=== PATIENT | female | born 1950 | race Caucasian/White ===

== ENCOUNTER → 2016-05-06 | Outpatient (CLI) | payer BC, OTHER ==
[~2016-05-06] MED LIST: ABL/5 PO; BUTA-240; CALCTAB5 PO; CHOL100010 PO; CLON1TAB3 PO; FIBER PO; LEVO50TA PO; LISI-725 PO; MISCCAP80 PO; MULT-506 PO; VENL150C56 PO
== END | disposition home or self-care (01) ==
LOC: C.PAPS 11:54
PROVIDERS: ATTEND Obstetrics & Gynecology
DX: R87.610 Atypical squamous cells of undetermined significance on cytologic smear of cervix (ASC-US) (principal)

== ENCOUNTER → 2016-06-04 | Outpatient (CLI) | payer BC, OTHER | END | disposition home or self-care (01) | LOC: C.LABBC 09:42 | PROVIDERS: ATTEND Psychiatry & Neurology Psychiatry | DX: Z79.899 Other long term (current) drug therapy (principal) ==

== ENCOUNTER → 2016-06-25 | Outpatient (CLI) | payer BC, OTHER | END | disposition home or self-care (01) | LOC: C.LABBC 11:15 | PROVIDERS: ATTEND Internal Medicine Geriatric Medicine | DX: E03.9 Hypothyroidism, unspecified (principal) ==

== ENCOUNTER → 2016-06-27 | Outpatient (CLI) | payer BC, OTHER | END | disposition home or self-care (01) | LOC: C.PATHSPEC 16:56 | PROVIDERS: ATTEND Obstetrics & Gynecology | DX: R87.613 High grade squamous intraepithelial lesion on cytologic smear of cervix (HGSIL) (principal) ==

== ENCOUNTER → 2016-07-11 | Outpatient (CLI) | payer BC, OTHER ==
--- NOTE | 2016-07-11 09:42 | DIAGNOSTIC IMAGING REPORT ---
CHEST 2 VIEWS ROUTINE CLINICAL HISTORY: PRE OP, PT WENT TO LAB FIRST, CPL AFTER PLEASE COMPARISON STUDY: 11/14/2015 FINDINGS: Mild chronic pleural reactive change right base. Lungs otherwise appear clear. Diaphragms smooth. IMPRESSION: Chronic pleural reactive change right base. No acute process. Electronically signed by: Russell Gaytan M.D. 07/11/2016 9:40 AM Dictated Date/Time: 07/11/2016 9:34 AM
[2016-07-11 09:44] LABS: MEAN CELL VOLUME 87.3 fL (80-100); MEAN CORPUSCULAR HEMOGLOBIN 30.6 pg (25-34); MEAN PLATELET VOLUME 8.7 fL (7.4-10.4); PLATELET COUNT 348 K/uL (130-400); RED BLOOD COUNT 4.58 M/uL (4.2-5.4); WHITE BLOOD COUNT 6.16 K/uL (4.8-10.8)
[2016-07-11 11:11] LABS: ALT/SGPT 27 U/L (12-78); AST/SGOT 19 U/L (15-37); BLOOD UREA NITROGEN 8 mg/dl (7-18); BUN/CREATININE RATIO 10.4 (10-20); CALCIUM 10.6 mg/dl (8.5-10.1); CARBON DIOXIDE 31 mmol/L (21-32); CHLORIDE 102 mmol/L (98-107); CREATININE 0.81 mg/dl (0.60-1.20); GLUCOSE 92 mg/dl (70-99); POTASSIUM 4.1 mmol/L (3.5-5.1); SODIUM 140 mmol/L (136-145)
[2016-07-11 11:13] LABS: ALB/GLOB RATIO 1.3 (0.9-2); ALKALINE PHOSPHATASE 89 U/L (45-117)
== END | disposition home or self-care (01) ==
LOC: C.CPL 09:01
PROVIDERS: ATTEND Obstetrics & Gynecology Gynecologic Oncology
DX: Z01.810 Encounter for preprocedural cardiovascular examination (principal); Z01.811 Encounter for preprocedural respiratory examination; Z01.812 Encounter for preprocedural laboratory examination

== ENCOUNTER → 2016-08-19 | Outpatient (CLI) | payer BC, OTHER ==
--- NOTE | 2016-08-19 08:59 | DIAGNOSTIC IMAGING REPORT ---
CT SCAN OF THE CHEST WITHOUT IV CONTRAST CLINICAL HISTORY: Lung cancer status post right lower lobe resection. COMPARISON STUDY: Chest CT scans dated 01/30/2016 and 12/08/2013. TECHNIQUE: CT scan of the thorax was performed from the thoracic inlet to the upper abdomen. Images are reviewed in the axial, sagittal, and coronal planes. IV contrast was not administered as per the referring clinician. CT DOSE: 183.23 mGy.cm FINDINGS: Thyroid: The right lobe of the thyroid gland is diminutive versus surgically absent. Thoracic aorta: There is mild atherosclerotic calcification of the thoracic aorta, which is normal in caliber and demonstrates standard 3-vessel arch anatomy. Heart: The heart is top normal in size and there is a small pericardial effusion. Lungs and pleural spaces: There are postoperative from right lower lobectomy, with diminished volume in the right lung and mild compensatory hyperinflation of the left lung. Pleural fluid is seen at the right lung base and is likely on a postoperative basis. Mild emphysematous change is identified. The left lung is clear. No concerning pulmonary lesion is seen on today's examination. The trachea and central airways appear clear. Mediastinum: There is moderate rightward shift of mediastinum. There is no mediastinal lymphadenopathy. Vale: Not well assessed without IV contrast. Axillae: Surgical clips are noted in the right breast and the right axilla. There is no axillary lymphadenopathy. Upper abdomen: There is a small hiatal hernia. Partially visualized upper abdominal viscera is otherwise within normal limits. Skeletal structures: The skeletal structures are osteopenic. No lytic or blastic bony lesions are seen. There are healed bilateral rib fractures. The right rib fractures are new from 01/30/2016. IMPRESSION: 1. Emphysema and postoperative change from right lower lobe pulmonary resection as above. 2. There is no evidence of intrathoracic metastatic disease. 3. No airspace consolidation is identified typical for pneumonia. 4. Additional findings as above. Electronically signed by: Ramírez Lancaster M.D. 08/19/2016 8:57 AM Dictated Date/Time: 08/19/2016 8:40 AM
== END | disposition home or self-care (01) ==
LOC: C.CTS 08:23
PROVIDERS: ATTEND Surgery
DX: C34.31 Malignant neoplasm of lower lobe, right bronchus or lung (principal); J43.9 Emphysema, unspecified

== ENCOUNTER → 2016-09-05 | Outpatient (CLI) | payer BC, OTHER ==
[2016-09-05 16:52] LABS: BASO % 0.3 %; BASO ABS # 0.02 K/uL (0-0.2); COMPLETE YES; EOS % 6.8 %; HEMATOCRIT 38.8 % (37-47); IG% 0.4 %; LYMPH % 29.8 %; LYMPH ABS # 2.18 K/uL (1.2-3.4); MEAN CELL VOLUME 89.4 fL (80-100); MEAN CORPUSCULAR HEMOGLOBIN 30.2 pg (25-34); MEAN CORPUSCULAR HGB CONC 33.8 g/dl (32-36); MEAN PLATELET VOLUME 9.2 fL (7.4-10.4); MONO % 6.4 %; NEUT % 56.3 %; PLATELET COUNT 333 K/uL (130-400); RED BLOOD COUNT 4.34 M/uL (4.2-5.4); WHITE BLOOD COUNT 7.32 K/uL (4.8-10.8)
[2016-09-05 17:04] LABS: ALT/SGPT 25 U/L (12-78); AST/SGOT 20 U/L (15-37); BLOOD UREA NITROGEN 9 mg/dl (7-18); BUN/CREATININE RATIO 12.4 (10-20); CALCIUM 9.2 mg/dl (8.5-10.1); CARBON DIOXIDE 26 mmol/L (21-32); CHLORIDE 101 mmol/L (98-107); CREATININE 0.71 mg/dl (0.60-1.20); GLUCOSE 87 mg/dl (70-99); POTASSIUM 3.9 mmol/L (3.5-5.1); SODIUM 135 mmol/L (136-145)
[2016-09-05 17:15] LABS: ALB/GLOB RATIO 1.1 (0.9-2); ALKALINE PHOSPHATASE 94 U/L (45-117)
[2016-09-05 20:08] LABS: LYME DISEASE AB IGG NEG (NEG)
[2016-09-05 20:15] LABS: LYME DISEASE AB IGM EQUIVOCAL (NEG)
[2016-09-10 13:52] LABS: 18KDIGG BAND NONREACTIVE (NONREACTIVE); 23KDIGG BAND NONREACTIVE (NONREACTIVE); 23KDIGM BAND NONREACTIVE (NONREACTIVE); 28KDIGG BAND NONREACTIVE (NONREACTIVE); 30KDIGG BAND NONREACTIVE (NONREACTIVE); 39KDIGG BAND NONREACTIVE (NONREACTIVE); 39KDIGM BAND NONREACTIVE (NONREACTIVE); 41KDIGG BAND NONREACTIVE (NONREACTIVE); 41KDIGM BAND NONREACTIVE (NONREACTIVE); 45KDIGG BAND NONREACTIVE (NONREACTIVE); 58KDIGG BAND NONREACTIVE (NONREACTIVE); 66KDIGG BAND NONREACTIVE (NONREACTIVE); 93KDIGG BAND NONREACTIVE (NONREACTIVE)
== END ==
LOC: C.LABBC 15:04
PROVIDERS: ATTEND Physician Assistant
DX: L28.2 Other prurigo (principal)

== ENCOUNTER → 2017-02-10 | Outpatient (CLI) | payer BC, OTHER ==
--- NOTE | 2017-02-11 07:43 | MAMMOGRAPHY REPORT ---
BILATERAL DIGITAL SCREENING MAMMOGRAM TOMOSYNTHESIS WITH CAD: 02/10/2017 CLINICAL HISTORY: Asymptomatic. Personal history of breast cancer. Patient has no complaints. TECHNIQUE: Breast tomosynthesis in addition to standard 2D mammography was performed. Current study was also evaluated with a Computer Aided Detection (CAD) system. COMPARISON: Comparison is made to exams dated: 02/08/2016 mammogram, 02/03/2015 mammogram, 01/26/2014 mammogram, 01/25/2013 mammogram, 09/04/2012 mammogram, and 03/04/2012 aspiration - [facility]. BREAST COMPOSITION: There are scattered areas of fibroglandular density in both breasts. FINDINGS: There are circumscribed and lobulated fluctuating subcentimeter masses in the left breast, most likely representing fluctuating cysts. Expected architectural distortion and surgical clips in the right upper outer breast posteriorly, denoting the area of prior surgery. No new suspicious mass , architectural distortion or cluster of microcalcifications is seen bilaterally. IMPRESSION: ACR BI-RADS CATEGORY 2: BENIGN There is no mammographic evidence of malignancy. A 1 year screening mammogram is recommended. The pa tient will receive written notification of the results. Approximately 10% of breast cancers are not detected with mammography. A negative mammographic report should not delay biopsy if a clinically suggestive mass is present. Siria Dean M.D. ay/:02/10/2017 17:25:45 Washroom Operator: Loli Kaur M, [facility] letter sent: Normal 1/2 BI-RADS Code: ACR BI-RADS Category 2: Benign
== END | disposition home or self-care (01) ==
LOC: C.MAMM 09:59
PROVIDERS: ATTEND Internal Medicine Geriatric Medicine
DX: Z12.31 Encounter for screening mammogram for malignant neoplasm of breast (principal)

== ENCOUNTER → 2017-02-11 | Outpatient (CLI) | payer BC, OTHER ==
--- NOTE | 2017-02-11 14:42 | DIAGNOSTIC IMAGING REPORT ---
(CHEST) THORAX WITHOUT CT DOSE: 150.50 mGycm HISTORY: C34.31 Primary malignant neoplasm of right lower lobe of lung PT TECHNIQUE: Multiaxial CT images of the chest were performed without contrast. A dose lowering technique was utilized adhering to the principles of ALARA. COMPARISON: Chest CT 08/19/2016. FINDINGS: No pneumothorax. The patient is status post a right lower lobectomy. No pneumothorax. No pleural effusions. Mild emphysema. A few linear scarlike densities within the right lung base. Old, healed bilateral rib fractures. The visualized liver, spleen, and adrenal glands are unremarkable. No pleural effusions. Surgical clips within the right breast and right axilla. Stable subcentimeter nodular densities within the left breast. No mediastinal or hilar lymphadenopathy. Normal caliber thoracic aorta. The heart is normal in size. IMPRESSION: 1. Status post right lower lobectomy. 2. No evidence for recurrent or metastatic disease within the chest. 3. Mild emphysema. Electronically signed by: Garrett Urbano M.D. 02/11/2017 2:41 PM Dictated Date/Time: 02/11/2017 2:36 PM
== END | disposition home or self-care (01) ==
LOC: C.CTS 14:21
PROVIDERS: ATTEND Surgery
DX: C34.31 Malignant neoplasm of lower lobe, right bronchus or lung (principal)

== ENCOUNTER → 2017-08-12 | Outpatient (CLI) | payer BC, OTHER ==
[2017-08-12 13:14] LABS: BASO % 0.5 %; BASO ABS # 0.03 K/uL (0-0.2); EOS % 3.1 %; EOS ABS # 0.17 K/uL (0-0.5); HEMOGLOBIN 13.8 g/dL (12.0-16.0); IG# 0.01 K/uL (0.00-0.02); LYMPH % 40.7 %; LYMPH ABS # 2.26 K/uL (1.2-3.4); MEAN CELL VOLUME 89.5 fL (80-100); MEAN CORPUSCULAR HEMOGLOBIN 30.9 pg (25-34); MEAN CORPUSCULAR HGB CONC 34.5 g/dl (32-36); MEAN PLATELET VOLUME 9.1 fL (7.4-10.4); MONO ABS # 0.39 K/uL (0.11-0.59); NEUT % 48.5 %; NEUT ABS # 2.69 K/uL (1.4-6.5); PLATELET COUNT 378 K/uL (130-400); RED CELL DISTRIBUTION WIDTH SD 42.2 fL (36.4-46.3); WHITE BLOOD COUNT 5.55 K/uL (4.8-10.8)
[2017-08-12 13:35] LABS: ALBUMIN 4.4 gm/dl (3.4-5.0); ALT/SGPT 31 U/L (12-78); AST/SGOT 33 U/L (15-37); BLOOD UREA NITROGEN 12 mg/dl (7-18); CARBON DIOXIDE 28 mmol/L (21-32); CHOLESTEROL 215 mg/dl (0-200); CREATININE 0.75 mg/dl (0.60-1.20); GLUCOSE 97 mg/dl (70-99); POTASSIUM 3.8 mmol/L (3.5-5.1); SODIUM 136 mmol/L (136-145)
[2017-08-12 13:45] LABS: ALKALINE PHOSPHATASE 91 U/L (45-117); LDL CHOLESTEROL CALCULATED 110 mg/dl; TOTAL PROTEIN 7.6 gm/dl (6.4-8.2)
== END | disposition home or self-care (01) ==
LOC: C.LABBC 11:11
PROVIDERS: ATTEND Internal Medicine Geriatric Medicine
DX: M81.0 Age-related osteoporosis without current pathological fracture (principal); E03.9 Hypothyroidism, unspecified; I10 Essential (primary) hypertension; E55.9 Vitamin D deficiency, unspecified; F09 Unspecified mental disorder due to known physiological condition

== ENCOUNTER → 2017-08-14 | Outpatient (CLI) | payer BC, OTHER ==
--- NOTE | 2017-08-14 13:55 | DIAGNOSTIC IMAGING REPORT ---
(CHEST) THORAX WITHOUT CT DOSE: 176.20 mGy.cm CLINICAL HISTORY: 67 years-old Female with C34.31 Primary malignant neoplasm of right lower lobe of lung. Follow-up study in a patient with history of prior right lower lobectomy. TECHNIQUE: Multiaxial CT images of the chest were performed without contrast. A dose lowering technique was utilized adhering to the principles of ALARA. COMPARISON: Chest CT 02/11/2017 FINDINGS: No dominant thyroid nodule or pathologic adenopathy identified. The heart is normal in size without pericardial effusion. Thoracic aorta is normal without aneurysm. Trace amount of right pleural fluid is noted which appears unchanged. Postoperative changes from prior right lower lobectomy. There are ill-defined groundglass densities bowel the bilateral lungs measuring up to a proximally 6 mm. Additionally, subpleural reticulation about the lateral right lung base is unchanged suggesting posttreatment changes. Mild upper lobe predominant emphysema. There are no suspicious pulmonary nodules or masses identified. No acute process of the imaged upper abdomen. No suspicious lytic or blastic bony lesions. Multilevel intervertebral disc space narrowing, spondylitic spurring and facet arthrosis. Soft tissues are unremarkable. IMPRESSION: 1. Prior right lower lobectomy without evidence of recurrent or metastatic disease. 2. Ill-defined scattered subsegmental groundglass densities about the bilateral lungs suggest a subtle infectious or inflammatory pneumonitis. No lobar airspace consolidation or suspicious pulmonary nodules identified. 3. Mild emphysema. Electronically signed by: Travon Cardoso M.D. 08/14/2017 1:53 PM Dictated Date/Time: 08/14/2017 1:44 PM
== END | disposition home or self-care (01) ==
LOC: C.CTS 13:29
PROVIDERS: ATTEND Surgery
DX: C34.31 Malignant neoplasm of lower lobe, right bronchus or lung (principal); R91.8 Other nonspecific abnormal finding of lung field

== ENCOUNTER 2018-11-04 08:39 | Inpatient (IN) ==
--- NOTE | 2018-10-13 11:57 | PAT Medication Instructions ---
Medication Instructions Date of Service October 13, 2018 Home Medications Probiotic 1 tab PO QAM chfiyojvty-rlctibzqbfsxd-gecg 1 cap PO DAILY PRN cholecalciferol (vitamin D3) [Vitamin D3] 1,000 unit PO QAM clonazepam 0.5 mg PO QAM cyanocobalamin (vitamin B-12) Vitamin B-12 1,000 mcg PO QAM halobetasol propionate [Ultravate] 1 applic TOPICAL BID PRN multivitamin 1 tab PO QAM venlafaxine 150 mg PO BID lisinopril 20 mg PO QAM calcium carbonate-vitamin D3 600 mg calcium-200 unit capsule 2 cap PO DAILY fluticasone propionate 50 mcg/actuation nasal spray,suspension 2 spray INTRANASAL DAILY PRN ibuprofen 200 mg tablet 200 mg PO Q8H PRN ropinirole 0.25 mg tablet 0.75 mg PO QPM Herbal Laxative 1 tab PO DAILY cetirizine [Zyrtec] 10 mg PO UD PRN diphenhydramine HCl Benadryl 25 mg PO UD PRN levothyroxine 50 mcg PO QAM magnesium oxide 400 mg PO DAILY triamcinolone acetonide 1 applic TOPICAL UD PRN ASK your surgeon for instructions nwdaeroyjk-vljufaialolju-pvxt 1 cap PO DAILY PRN ibuprofen 200 mg tablet 200 mg PO Q8H PRN STOP taking 24 hours before surgery halobetasol propionate [Ultravate] 1 applic TOPICAL BID PRN ropinirole 0.25 mg tablet 0.75 mg PO QPM triamcinolone acetonide 1 applic TOPICAL UD PRN DO NOT take the morning of surgery Probiotic 1 tab PO QAM cholecalciferol (vitamin D3) [Vitamin D3] 1,000 unit PO QAM cyanocobalamin (vitamin B-12) Vitamin B-12 1,000 mcg PO QAM multivitamin 1 tab PO QAM lisinopril 20 mg PO QAM calcium carbonate-vitamin D3 600 mg calcium-200 unit capsule 2 cap PO DAILY Herbal Laxative 1 tab PO DAILY cetirizine [Zyrtec] 10 mg PO UD PRN diphenhydramine HCl Benadryl 25 mg PO UD PRN magnesium oxide 400 mg PO DAILY Take morning of surgery With a small sip of water, OTHERWISE NOTHING TO EAT OR DRINK AFTER MIDNIGHT: clonazepam 0.5 mg PO QAM venlafaxine 150 mg PO BID fluticasone propionate 50 mcg/actuation nasal spray,suspension 2 spray INTRANASAL DAILY PRN (if needed) levothyroxine 50 mcg PO QAM Other Notes If you have any questions please call us at [phone] or [phone] or [phone] or [phone]
--- NOTE | 2018-10-14 09:49 | Anesthesiology Consultation ---
Date of Service October 14, 2018 Assessment & Plan (1) Encounter for pre-operative examination: Chart Review Chart Review: Acceptable Risk for Surgery and Patient seen in Pre Admission Testing Teaching & Discussion Pre-Anesthesia Teaching/Discussion Notes: Instructed NPO after midnight before surgery,except medications with 15 cc of water. Medication instructions provided according to the PAT guidelines. History Surgery Operation Date: 11/04/18 11:50 Proposed Procedures p Laparoscopic Right Hemicolectomy - Dillan Lancaster, , FACS Height/Weight Height: 5 ft 5 in Weight: 48.8 kg Allergies Allergy/AdvReac Type Severity Reaction Status Date / Time propranolol AdvReac Unknown fatigue, Verified 10/13/18 11:54 weakness Medications Home Medications Medication Instructions Recorded Confirmed Last Taken Probiotic 1 tab PO QAM 04/27/18 10/07/18 09/11/18 qbbpxzssjv-vkkyivefrmnpw-eyqz 1 cap PO DAILY PRN 04/27/18 10/07/18 2 Weeks Ago ~04/27/18 cholecalciferol (vitamin D3) 1,000 unit PO QAM 04/27/18 10/07/18 09/11/18 [Vitamin D3] cyanocobalamin (vitamin B-12) 1,000 mcg PO QAM 04/27/18 10/07/18 10/07/18 [Vitamin B-12] halobetasol propionate [Ultravate] 1 applic TOPICAL BID PRN 04/27/18 10/07/18 2 Weeks Ago ~04/27/18 multivitamin 1 tab PO QAM 04/27/18 10/07/18 09/11/18 venlafaxine 150 mg PO BID 04/27/18 10/07/18 10/07/18 lisinopril 20 mg PO QAM 09/11/18 10/07/18 10/07/18 calcium carbonate-vitamin D3 600 2 cap PO DAILY cap 09/15/18 10/07/18 Unknown mg calcium-200 unit capsule fluticasone propionate 50 2 spray INTRANASAL DAILY PRN gm 09/15/18 10/07/18 Unknown mcg/actuation nasal spray,suspension ibuprofen 200 mg tablet 200 mg PO Q8H PRN tab 09/15/18 10/07/18 Unknown ropinirole 0.25 mg tablet 0.75 mg PO QPM tab 09/15/18 10/07/18 10/06/18 Herbal Laxative 1 tab PO DAILY 10/07/18 10/07/18 Unknown cetirizine [Zyrtec] 10 mg PO UD PRN 10/07/18 10/07/18 Unknown diphenhydramine HCl [Benadryl] 25 mg PO UD PRN 10/07/18 10/07/18 Unknown levothyroxine 50 mcg PO QAM 10/07/18 10/07/18 10/07/18 magnesium oxide 400 mg PO DAILY 10/07/18 10/07/18 Unknown triamcinolone acetonide 1 applic TOPICAL UD PRN 10/07/18 10/07/18 Unknown clonazepam 1 mg tablet 0.5 mg PO QAM #30 tab 10/13/18 Unknown Past Medical History Medical History Acid reflux diet controlled Anxiety Balance problem chronic/improved; nonspecific gait disorder (follows with neuro) s/p unremarkable EMG Cataract b/l Cecal volvulus Chronic constipation Degenerative disc disease Depression History of diverticulitis 7 years ago History of lung cancer s/p right lower lobectomy History of right breast cancer 1997 s/p radiation/ right breast lumpectomy with LND Hypertension Hypothyroidism Migraine Osteoarthritis Restless leg syndrome Spinal stenosis Transient ischemic attack (TIA) 2014 Exercise / Class Metabolic Activity II 4-5 Yardwork/Stairs/Walk up hill Past Family History Family History Unknown Cancer Mother Breast cancer Cancer Brother Suicide Other Family history non-contributory No family history of adverse response to anesthesia Past Surgical History Surgical History History of colonoscopy History of colposcopy with cervical biopsy History of dilatation and curettage History of left breast biopsy History of lobectomy of lung right lower lobe d/t cancer History of lumpectomy of right breast + LND History of right breast biopsy "malignant" History of tonsillectomy and adenoidectomy History of total abdominal hysterectomy and bilateral salpingo-oophorectomy History of wisdom tooth extraction Past Anesthesia History No Hx of Anesthesia Complications and No Family Hx of Anesthesia Complications History of PONV No Hx of PONV and No Hx of Motion Sickness Social History Smoking Status: Former smoker tobacco type: cigarettes Do You Dip or Chew Tobacco: No Smoking End Date: QUIT 1997; HX <1PPD Hx Alcohol Use: Yes Alcohol type: beer and wine alcohol intake frequency: 0-2 drinks per day (2 drinks/day (per records, hx alcoholism)) Hx Substance Use: No substance use type: does not use Review of Systems Patient denies chest pain, shortness of breath, dyspnea on exertion, cough, wheezing, palpitations. Physical Exam Vital Signs VITALS BP 148/83 P 98 TEMP 98.1 SP02 97%RA RESP 20 PHYSICAL Full neck and c-spine range of motion. Full TMJ range of motion. TMD 3 finger breaths Mallampati Score 2 Dentition: right lower side tooth missing. upper front caps, large upper front teeth Lungs: clear throughout to auscultation Cardiac: regular rate and rhythm, no murmurs noted Spine: normal Carotid arteries: negative bruit Extremities: no edema Testing Laboratory Results Blood Type O Positive 10/14/18 10:04 Antibody Screen NEGATIVE 10/14/18 10:04 09/11/18 WBC 5.34 H/H 12.2/36.0 PLATELETS 287 SODIUM 141 POTASSIUM 4.4 CHLORIDE 106 CO2 31 BUN 9 CREATININE 0.75 GLUCOSE 78 Electrocardiogram Date: 10/14/18 Findings: + NSR @ (69) Chest X-Ray Date: 09/11/18 Findings: + NAD Stress Test Date: 05/29/15 Type: DSE Negative DSE for myocardial ischemia at 90% MPHR. No induced chest pain. EF 60%. No significant valvular disease.
[2018-10-14 12:06] LABS: Alanine Aminotransferase 26 U/L (12-78); Albumin Level 4.3 gm/dl (3.4-5.0); Alkaline Phosphatase 88 U/L (45-117); Aspartate Aminotransferase 23 U/L (15-37); Bilirubin Direct < 0.1 mg/dl (0-0.2); Bilirubin,Total 0.4 mg/dl (0.2-1); Total Protein 7.3 gm/dl (6.4-8.2)
[~2018-11-04 08:39] MED LIST changes: -ABL/5 PO; -BUTA-240; -CALCTAB5 PO; -CHOL100010 PO; -CLON1TAB3 PO; -FIBER PO; -LEVO50TA PO; -LISI-725 PO; +LR 15ML/HR IV SCH; -MISCCAP80 PO; -MULT-506 PO; -VENL150C56 PO; +cefOXitin 2,000 MG in DEXTROSE 5% 50 ML IV SCH
--- NOTE | 2018-11-04 10:20 | History & Physical Bridge Note ---
Date of Service November 04, 2018 History & Physical Bridge Note I have examined the patient, reviewed the History & Physical and in the interval since the performance of the History & Physical I have noted the following changes of clinical significance: no changes noted
[2018-11-04] MEDS ORDERED: ATROPINE SULFATE 0.1 MG/ML 10ML SYR IV PRN (10:40)
[2018-11-04] MEDS ORDERED: fentaNYL citrate 100 MCG/2 ML VIAL IV PRN (10:40)
[2018-11-04] MEDS ORDERED: ePHEDrine sulfate 50 MG/ML AMP IV PRN (10:40)
[2018-11-04] MEDS ORDERED: HYDROmorphone INJ 1 MG/ML SYRINGE IV PRN (10:40)
[2018-11-04] MEDS ORDERED: ONDANSETRON INJ 2 MG/ML 2 ML VIAL IV PRN (10:40)
[2018-11-04] MEDS ORDERED: fentaNYL citrate 100 MCG/2 ML VIAL ONE ×3 (10:42→12:52)
[2018-11-04] MEDS ORDERED: MIDAZOLAM HCL 1 MG/ML 2ML VIAL ONE (10:42)
[2018-11-04] MEDS ORDERED: BUPIVACAINE LIPOSOME 1.3% 266 MG/20 ML VIAL ONE (10:44)
[2018-11-04] MEDS ORDERED: BUPIVACAINE 0.5 % 5 MG/1 ML MPF 30ML VIAL ONE (10:44)
[2018-11-04] MEDS ORDERED: ROCURONIUM BROMIDE 10 MG/ML 5 ML VIAL ONE (12:43)
[2018-11-04] MEDS ORDERED: PROPOFOL IV EMULSION 10 MG/ML 20 ML VIAL IV ONE (12:43)
[2018-11-04] MEDS ORDERED: LIDOCAINE HCL 2% 2 ML VIAL/AMP(20MG/ML) INFIL ONE (12:43)
[2018-11-04] MEDS ORDERED: GLYCOPYRROLATE 0.2 MG/ML VIAL ONE ×2 (12:53→12:58)
[2018-11-04] MEDS ORDERED: ONDANSETRON INJ 2 MG/ML 2 ML VIAL ONE ×2 (12:53)
[2018-11-04] MEDS ORDERED: LABETALOL HCL IV 5 MG/ML 20ML IV ONE (12:53)
[2018-11-04] MEDS ORDERED: DEXAMETHASONE SOD INJ 4 MG/ML VIAL ONE (12:53)
[2018-11-04] MEDS ORDERED: NEOSTIGMINE METHYLSULFATE 5 MG/5 ML SYR ONE (12:58)
--- NOTE | 2018-11-04 13:32 | Operative Report ---
Post Operative Report Pre & Post Diagnosis Operation Date: 11/04/18 10:00 Pre-Op Diagnosis: History of Cecal Volvulus Post-Op Diagnosis: History of Cecal Volvulus Procedure Operation Date: 11/04/18 10:00 Actual Procedures p Right Laparoscopic extended right hemicolectomy(Right) - Dillan Lancaster DO, FACS Surgeon Dillan Lancaster DO, FACS Histology Specialist Jesus Eckert Estimated Blood Loss 20 Findings Consistent with Post-Op Diagnosis Long, redundant colon. Extended right hemicolectomy performed. [id number]-oi-[id number] functional end-to-end ileocolic anastomosis performed using pierson loaded Endo TAWANA staplers, reinforced with Lembert's. Exparel injected at conclusion of case. Specimens Right: Anesthesia Type General Complications none Disposition Accompanied Patient To Recovery: No Disposition: Recovery Room Indications 68-year-old female with a single episode of cecal volvulus in the past that had resolved spontaneously. Plan for laparoscopic assisted right hemicolectomy. The risks of the procedure were discussed, all questions were answered, and the patient agreed to proceed with surgery as planned. Description of Procedure The patient was properly identified, consented, and taken to the operating room where she was placed in the supine position. General endotracheal anesthesia was induced. SCDs and a safety belt were placed. Preoperative antibiotics were administered. A Das catheter was placed. The patient's abdomen was prepped and draped in the standard sterile fashion. Surgical timeout was performed and all parties were in agreement that this was the correct patient and procedure to be performed and we continued as planned. A vertical midline infraumbilical incision was made with electrocautery and deepened down to the fascia with blunt dissection. The base of the umbilicus was grasped with a Romulo. The Romulo was elevated towards the ceiling and the fascia was incised with a knife. Stay sutures were placed on either side of the midline. The Mary trocar entry into the peritoneum was confirmed. The Mary trocar was then placed and the abdomen insufflated with carbon dioxide which the patient tolerated without incident. The laparoscope was inserted and the abdomen inspected. No damage from initial trocar placement was noted. No significant adhesions or other abnormalities were noted. Next, 5 mm ports were then placed in the midline just above the pubic symphysis with care not to damage the bladder and in the left lower quadrant with care not to damage the epigastric vessels. The patient was placed in Trendelenburg position and then rotated towards the left. The small bowel was swept out of the way. The right colon was redundant and poorly tethered to the abdominal wall. The cecum was grasped and elevated towards the anterior abdominal wall exposing the ileocolic vascular pedicle. The peritoneum just underneath this was incised with electrocautery. Blunt dissection was then used to isolate the vessels along with the use of the harmonic scalpel. The vessels were circumferentially dissected. A pierson loaded 30 mm endoscopic stapler was then used to divide the ileocolic vein and artery at their base. Hemostasis appeared excellent. We then continued the dissection from a medial to lateral approach dissecting the retroperitoneal structures posteriorly away from the colonic mesentery. Care was taken not to damage the pancreas or duodenum. We continued this dissection until we entered the lesser sac and continued laterally until the colon was nearly free of all adhesions except for the white line of Toldt. We then began dissection of the greater omentum off of the transverse colon mesentery. This was performed with blunt dissection and harmonic scalpel. The lesser sac was then entered. Once the medial to lateral dissection was completed, we then performed a lateral dissection using electrocautery and Harmonic scalp to take down the white line of Toldt along the right colon. Once this was completed, it appeared that the right colon and distal ileum would reach easily to the abdomen, we decided to exteriorize the colon. Laparoscopy was ceased and a midline incision was made around the umbilicus for a length of approximately 7 cm. The wound protector was placed within the wound after the fascia was opened and the colon was exteriorized. The colon reached e asily as did the small bowel. A window was created in the mesentery and the transverse colon was divided with a pierson loaded 60 mm stapler proximal to the left branch of the middle colic artery and vein. The distal ileum was divided in a similar manner approximately 20 cm from the ileocolic valve. We then completed the resection of the mesentery using the harmonic scalpel. What appeared to be the right branch of the middle colic was suture-ligated with 3-0 silk. A suxy-di-xqow functional end-to-end ileocolic anastomosis was created. The antimesenteric border the staple line on both the small bowel and colon was excised using curved Grayson scissors. A 60 mm pierson loaded stapler was then fired sequentially to create the anastomosis. The common enterotomy and staple lines were excised using a pierson loaded 60 mm Endo TAWANA stapler. The anastomosis was palpable and widely patent. The staple line was then reinforced circumferentially with 3-0 silk GI Lembert sutures. The mesenteric defect was then closed with 2-0 Vicryl suture. The anastomosis was inspected. The bowel appeared viable and the anastomosis was widely patent. There was no evidence of a leak. Hemostasis was excellent. The anastomosis was then allowed to drop back into the abdomen. The abdomen was then irrigated with warm saline. The fascia was then injected with exparel. The periumbilical wound protector was removed and the fascia was closed with a #1 PDS. The wound was irrigated and the incision was then closed with lela. The remaining port sites were closed with lela. Sterile dressings were place d. The patient was extubated in the operating room and taken to the PACU where she recovered without apparent incident. All sponge, instrument, and needle counts were correct. The patient tolerated the procedure well. The colon specimen was sent to Pathology. The physician's bioinformatics assistant was present and scrubbed the entire the case. He was critical in positioning the patient, prepping and draping, retraction and exposure, driving the laparoscope, resection of the bowel and creation of the anastomosis, closure the incisions, and placement of the dressings. I attest to the content of the Intraoperative Record and any orders documented therein. Any exceptions are noted below.
[2018-11-04] MEDS ORDERED: HydrALAZINE HCL 20 MG/ML VIAL ONE (14:12)
[2018-11-04] MEDS ORDERED: HydrALAZINE HCL 20 MG/ML VIAL IV STA (14:17)
--- NOTE | 2018-11-04 14:24 | Anesthesiology Progress Note ---
Date of Service November 04, 2018 Anesthesia Post Procedure Vital Signs Vital Signs: Temp Pulse Pulse Resp BP Pulse Ox 11/04/18 14:20 97.9 F 71 14 169/68 H 97 11/04/18 14:10 69 14 180/75 H 97 11/04/18 14:00 68 17 185/84 H 98 11/04/18 13:50 66 21 172/86 H 100 11/04/18 13:40 65 17 161/77 H 100 11/04/18 13:30 98.6 F 66 17 158/74 H 95 11/04/18 09:10 97.9 F 72 18 142/71 H 100 Pain Intensity Abdomen: Pain Intensity: 5 Transfer of Care Handoff Completed per policy Notes Mental Status: alert / awake / arousable and participated in evaluation Patient Amnestic to Procedure: Yes Nausea / Vomiting: adequately controlled Pain: adequately controlled Airway Patency, RR, SpO2: stable & adequate BP & HR: stable & adequate Hydration State: stable & adequate Anesthetic Complications: no major complications apparent and Pt Satisfied with anesthetic care
[2018-11-04] MEDS ORDERED: MoRPHine SULFATE 4 MG/ML 1 ML CARP\\VIAL IV PRN (14:57)
[2018-11-04] MEDS: LACTATED RINGER'S 1,000 ML IV SCH ×2 (15:55→23:02)
[2018-11-04] MEDS: MoRPHine SULFATE 2 MG/ML CARP IV PRN (16:30)
[2018-11-04] MEDS: cefOXitin 2,000 MG in DEXTROSE 5% 50 ML IV SCH ×2 (16:37→23:02)
[2018-11-04] MEDS: VENLAFAXINE HCL XR 150 MG CAPXR PO SCH (20:27)
[2018-11-04] MEDS: ROPINIROLE HCL 0.25 MG TABLET PO SCH (20:27)
[2018-11-04] MEDS: ACETAMINOPHEN 1,000 MG/100 ML VIAL IV PRN (20:31)
[2018-11-05] MEDS: MoRPHine SULFATE 2 MG/ML CARP IV PRN ×2 (03:28→07:30)
[2018-11-05] MEDS: cefOXitin 2,000 MG in DEXTROSE 5% 50 ML IV SCH ×2 (04:17→10:07)
[2018-11-05] MEDS: LACTATED RINGER'S 1,000 ML IV SCH ×2 (06:05→16:55)
[2018-11-05] MEDS: LEVOTHYROXINE SODIUM 50 MCG TABLET PO SCH (06:05)
[2018-11-05 06:14] LABS: Basophils # (auto) 0.02 K/uL (0-0.2); Basophils % (auto) 0.2 %; Eosinophils # (auto) 0.03 K/uL (0-0.5); Eosinophils % (auto) 0.3 %; Hemoglobin 12.6 g/dL (12.0-16.0); Immature Granulocytes # (auto) 0.01 K/uL (0.00-0.02); Immature Granulocytes % (auto) 0.1 %; Lymphocytes # (auto) 0.99 K/uL (1.2-3.4); Lymphocytes % (auto) 10.8 %; Mean Corpuscular Hgb Conc 34.1 g/dL (32-36); Mean Corpuscular Volume 89.6 fL (80-100); Mean Platelet Volume 8.5 fL (7.4-10.4); Monocytes # (auto) 0.77 K/uL (0.11-0.59); Monocytes % (auto) 8.4 %; Neutrophils # (auto) 7.33 K/uL (1.4-6.5); Neutrophils % (auto) 80.2 %; Platelet Count 297 K/uL (130-400); RDW Coefficient of Variation 12.8 % (11.5-14.5); RDW Standard Deviation 41.6 fL (36.4-46.3); Red Blood Count 4.13 M/uL (4.2-5.4); White Blood Count 9.15 K/uL (4.8-10.8)
[2018-11-05 07:01] LABS: BUN Creatinine Ratio 7.2 (10-20); Calcium 8.4 mg/dl (8.5-10.1); Creatinine Clr Calc Pharmacy 46.8 ml/min; Est GFR (African American) 76.1; Est GFR (Non-African American) 65.7; Potassium 4.2 mmol/L (3.5-5.1)
[2018-11-05] MEDS: ENOXAPARIN INJ 40 MG/0.4 ML SYR SQ SCH (08:00)
[2018-11-05] MEDS: VENLAFAXINE HCL XR 150 MG CAPXR PO SCH ×2 (08:00→20:49)
--- NOTE | 2018-11-05 08:17 | Surgery Progress Note ---
Date of Service November 05, 2018 Assessment & Plan (1) Volvulus of colon: POD 1 lap assisted right colectomy UOP good labs stable change to dilaudid, prn Ofirmev, Toradol keep on clears Supervising Physician Co-Signing Physician Notes Patient seen and examined, labs reviewed, agree with above. POD #1 laparoscopic right hemicolectomy with ileocolic anastomosis for history of cecal volvulus. Overall doing well, abdomen sore but pain controlled. She is tolerating clear liquids without any nausea. She has not passed flatus yet. She has not been ambulating. The catheter was removed this morning. On exam she is afebrile with stable vitals, abdomen with dressings clean dry and intact, appropriately tender to palpation with no guarding or rebound. Labs unremarkable, hematocrit stable. POD #1 laparoscopic right hemicolectomy Advance to full liquids Ambulate Out of bed to chair Weight due to void Decrease IV fluids Subjective pain control marginal, no nausea, some sips Physical Exam Gastrointestinal (Abdomen): Inspection/Auscultation: + abdomen distended (minimal) and + abdominal surgical incision (dressing clean, dry) Percussion/Palpation: abdomen soft Results & Data Vital Signs (Past 12 Hours) Vital Signs Temp Pulse Resp BP Pulse Ox 11/05/18 07:03 36.7 C 83 18 169/75 H 96 11/05/18 03:23 36.7 C 79 19 164/75 H 98 11/04/18 23:01 36.8 C 81 18 151/64 H 95 11/04/18 20:25 36.4 C L 80 16 156/71 H 97 PG Care Time/CCT Total # of Minutes Spent Total Time Spent with Patient: Total time spent is greater than 50% in coordination of care (as documented) at patient's floor/unit and/or counseling patient:
--- NOTE | 2018-11-05 09:39 | Anesthesiology Progress Note ---
Date of Service November 05, 2018 Anesthesia Post Procedure Vital Signs Vital Signs: Temp Pulse Pulse Resp BP Pulse Ox 11/05/18 07:03 36.7 C 83 18 169/75 H 96 11/05/18 03:23 36.7 C 79 19 164/75 H 98 11/04/18 23:01 36.8 C 81 18 151/64 H 95 11/04/18 20:25 36.4 C L 80 16 156/71 H 97 11/04/18 18:17 36.4 C L 82 16 152/71 H 99 11/04/18 17:03 36.3 C L 79 16 139/73 98 11/04/18 16:09 36.3 C L 73 16 154/76 H 100 11/04/18 15:47 35.8 C L 71 16 149/76 H 100 11/04/18 15:21 34.8 C L 67 16 149/78 H 100 11/04/18 14:45 36.4 C L 68 14 128/69 99 11/04/18 14:30 72 17 158/71 H 97 11/04/18 14:20 36.6 C 71 14 169/68 H 97 11/04/18 14:10 69 14 180/75 H 97 11/04/18 14:00 68 17 185/84 H 98 11/04/18 13:50 66 21 172/86 H 100 11/04/18 13:40 65 17 161/77 H 100 11/04/18 13:30 37.0 C 66 17 158/74 H 95 Pain Intensity Abdomen: Pain Intensity: 4 Notes Mental Status: alert / awake / arousable and participated in evaluation Patient Amnestic to Procedure: Yes Nausea / Vomiting: adequately controlled Pain: adequately controlled Airway Patency, RR, SpO2: stable & adequate BP & HR: stable & adequate Hydration State: stable & adequate Anesthetic Complications: no major complications apparent and Pt Satisfied with anesthetic care
[2018-11-05] MEDS ORDERED: LISINOPRIL 5 MG TAB PO ONE (10:45)
[2018-11-05] MEDS: HYDROmorphone INJ 0.5 MG/0.5 ML SYR IV PRN ×3 (11:04→23:28)
[2018-11-05] MEDS: KETOROLAC TROMETHAMINE 15 MG/ML VIAL IV PRN ×2 (12:25→19:45)
[2018-11-05] MEDS: ROPINIROLE HCL 0.25 MG TABLET PO SCH (20:49)
[2018-11-06] MEDS: HYDROmorphone INJ 0.5 MG/0.5 ML SYR IV PRN ×4 (04:39→19:03)
[2018-11-06] MEDS: LACTATED RINGER'S 1,000 ML IV SCH (04:40)
[2018-11-06] MEDS: LEVOTHYROXINE SODIUM 50 MCG TABLET PO SCH (05:52)
[2018-11-06 07:53] LABS: Basophils # (auto) 0.01 K/uL (0-0.2); Basophils % (auto) 0.2 %; Eosinophils # (auto) 0.23 K/uL (0-0.5); Eosinophils % (auto) 3.6 %; Hematocrit (blood only) 32.1 % (37-47); Hemoglobin 10.8 g/dL (12.0-16.0); Immature Granulocytes # (auto) 0.01 K/uL (0.00-0.02); Immature Granulocytes % (auto) 0.2 %; Lymphocytes % (auto) 13.9 %; Mean Corpuscular Hgb Conc 33.6 g/dL (32-36); Mean Corpuscular Volume 89.9 fL (80-100); Mean Platelet Volume 8.7 fL (7.4-10.4); Monocytes # (auto) 0.45 K/uL (0.11-0.59); Neutrophils # (auto) 4.86 K/uL (1.4-6.5); Neutrophils % (auto) 75.1 %; Platelet Count 271 K/uL (130-400); RDW Coefficient of Variation 12.8 % (11.5-14.5); RDW Standard Deviation 41.8 fL (36.4-46.3); Red Blood Count 3.57 M/uL (4.2-5.4); White Blood Count 6.46 K/uL (4.8-10.8)
[2018-11-06 08:27] LABS: BUN Creatinine Ratio 12.7 (10-20); Calcium 8.9 mg/dl (8.5-10.1); Creatinine Clr Calc Pharmacy 70.3 ml/min; Est GFR (African American) 108.5; Est GFR (Non-African American) 93.7; Potassium 3.6 mmol/L (3.5-5.1)
[2018-11-06] MEDS: ENOXAPARIN INJ 40 MG/0.4 ML SYR SQ SCH (08:32)
[2018-11-06] MEDS: VENLAFAXINE HCL XR 150 MG CAPXR PO SCH ×2 (08:32→20:34)
[2018-11-06] MEDS: LISINOPRIL 5 MG TAB PO SCH (08:32)
--- NOTE | 2018-11-06 08:33 | Surgery Progress Note ---
Date of Service November 06, 2018 Assessment & Plan (1) Volvulus of colon: POD 2 lap assisted right colectomy Will continue full liquid diet until return of bowel function OOB ambulating as tolerated Will start po pain and continue to monitor pain control Decrease IVF [facility] surgery on this weekend and will follow patient Subjective Patient reports some improvement in pain with the switch from morphine to dilaudid. Reports she took in a lot of clear liquids yesterday without issue. Physical Exam Gastrointestinal (Abdomen): Inspection/Auscultation: + abdomen distended (minimal) and + abdominal surgical incision (dressing clean, dry, some ecchymosis alejandra midline incision) Percussion/Palpation: abdomen soft Results & Data Vital Signs (Past 12 Hours) Vital Signs Temp Pulse Pulse Resp BP Pulse Ox 11/06/18 07:35 37.2 C 86 16 134/64 94 11/05/18 22:56 37.5 C 84 18 131/69 95 PG Care Time/CCT Total # of Minutes Spent Total Time Spent with Patient: Total time spent is greater than 50% in coordination of care (as documented) at patient's floor/unit and/or counseling patient:
[2018-11-06] MEDS: KETOROLAC TROMETHAMINE 15 MG/ML VIAL IV PRN ×2 (12:56→20:31)
[2018-11-06] MEDS: ROPINIROLE HCL 0.25 MG TABLET PO SCH (20:34)
[2018-11-07] MEDS: OXYCODONE/ACETAMINOPHEN 5mg/325mg TAB PO PRN ×4 (03:24→21:56)
[2018-11-07] MEDS: LEVOTHYROXINE SODIUM 50 MCG TABLET PO SCH (05:42)
[2018-11-07] MEDS: KETOROLAC TROMETHAMINE 15 MG/ML VIAL IV PRN ×2 (07:44→15:38)
[2018-11-07 08:00] LABS: Basophils # (auto) 0.01 K/uL (0-0.2); Basophils % (auto) 0.2 %; Eosinophils # (auto) 0.26 K/uL (0-0.5); Eosinophils % (auto) 5.3 %; Hematocrit (blood only) 29.6 % (37-47); Hemoglobin 10.2 g/dL (12.0-16.0); Immature Granulocytes # (auto) 0.01 K/uL (0.00-0.02); Immature Granulocytes % (auto) 0.2 %; Lymphocytes # (auto) 0.86 K/uL (1.2-3.4); Lymphocytes % (auto) 17.6 %; Mean Corpuscular Hgb Conc 34.5 g/dL (32-36); Mean Corpuscular Volume 88.6 fL (80-100); Mean Platelet Volume 8.2 fL (7.4-10.4); Monocytes # (auto) 0.37 K/uL (0.11-0.59); Monocytes % (auto) 7.6 %; Neutrophils # (auto) 3.37 K/uL (1.4-6.5); Neutrophils % (auto) 69.1 %; Platelet Count 250 K/uL (130-400); RDW Coefficient of Variation 12.6 % (11.5-14.5); Red Blood Count 3.34 M/uL (4.2-5.4); White Blood Count 4.88 K/uL (4.8-10.8)
[2018-11-07 08:23] LABS: BUN Creatinine Ratio 13.3 (10-20); Calcium 9.1 mg/dl (8.5-10.1); Creatinine Clr Calc Pharmacy 71.5 ml/min; Est GFR (African American) 109.2; Est GFR (Non-African American) 94.2; Potassium 3.6 mmol/L (3.5-5.1)
[2018-11-07] MEDS: LISINOPRIL 5 MG TAB PO SCH (08:41)
[2018-11-07] MEDS: ENOXAPARIN INJ 40 MG/0.4 ML SYR SQ SCH (08:41)
[2018-11-07] MEDS: VENLAFAXINE HCL XR 150 MG CAPXR PO SCH ×2 (08:41→21:53)
--- NOTE | 2018-11-07 09:20 | Surgery Progress Note ---
Date of Service November 07, 2018 Assessment & Plan (1) Volvulus of colon: Postoperative day #3, status post right hemicolectomy Doing well Can advance to low fiber diet Encouraged ambulation Present on Admission?: Yes Subjective Postoperative day #3, status post right hemicolectomy Has not had bowel movement May have passed a small amount of flatus Tolerated full liquid diet without nausea or vomiting Having incisional discomfort only Physical Exam Gastrointestinal (Abdomen): Inspection/Auscultation: + abdomen distended (Mild), normal bowel sounds and + abdominal surgical incision (Ecchymosis around midportion of incision but no erythema and no drainage) Percussion/Palpation: + abdomen tender (Incisional only) and abdomen soft Results & Data Vital Signs (Past 12 Hours) Vital Signs Temp Pulse Pulse Resp BP Pulse Ox 11/07/18 08:40 131/66 11/07/18 07:08 36.4 C L 79 16 128/71 97 11/06/18 22:54 36.9 C 80 14 134/72 95 Laboratory Results 11/07/18 11/07/18 Range/Units 07:52 07:52 WBC 4.88 (4.8-10.8) K/uL RBC 3.34 L (4.2-5.4) M/uL Hgb 10.2 L (12.0-16.0) g/dL Hct 29.6 L (37-47) % MCV 88.6 (80-100) fL MCH 30.5 (25-34) pg MCHC 34.5 (32-36) g/dL RDW Std Deviation 41.0 (36.4-46.3) fL RDW Coeff of [place] 12.6 (11.5-14.5) % Plt Count 250 (130-400) K/uL MPV 8.2 (7.4-10.4) fL Immature Gran % (Auto) 0.2 % Neut % (Auto) 69.1 % Lymph % (Auto) 17.6 % [place] % (Auto) 7.6 % Eos % (Auto) 5.3 % Baso % (Auto) 0.2 % Immature Gran # (Auto) 0.01 (0.00-0.02) K/uL Neut # (Auto) 3.37 (1.4-6.5) K/uL Lymph # (Auto) 0.86 L (1.2-3.4) K/uL [place] # (Auto) 0.37 (0.11-0.59) K/uL Eos # (Auto) 0.26 (0-0.5) K/uL Baso # (Auto) 0.01 (0-0.2) K/uL Sodium 139 (136-145) mmol/L Potassium 3.6 (3.5-5.1) mmol/L Chloride 105 (98-107) mmol/L Carbon Dioxide 28 (21-32) mmol/L Anion Gap 6.0 (3-11) BUN 8 (7-18) mg/dl Creatinine 0.59 L (0.6-1.2) mg/dl Est Cr Clr Drug Dosing 71.5 ml/min Est GFR ( Amer) 109.2 Est GFR (Non-Af Amer) 94.2 BUN/Creatinine Ratio 13.3 (10-20) Glucose 109 H (70-99) mg/dl Calcium 9.1 (8.5-10.1) mg/dl
[2018-11-07] MEDS: ROPINIROLE HCL 0.25 MG TABLET PO SCH (21:53)
[2018-11-08] MEDS: ONDANSETRON INJ 2 MG/ML 2 ML VIAL IV PRN ×4 (06:21→23:41)
[2018-11-08] MEDS: LISINOPRIL 5 MG TAB PO SCH (08:41)
[2018-11-08] MEDS: LEVOTHYROXINE SODIUM 50 MCG TABLET PO SCH (08:41)
[2018-11-08] MEDS: ENOXAPARIN INJ 40 MG/0.4 ML SYR SQ SCH (08:41)
[2018-11-08] MEDS: VENLAFAXINE HCL XR 150 MG CAPXR PO SCH ×2 (08:41→20:42)
--- NOTE | 2018-11-08 08:46 | Surgery Progress Note ---
Date of Service November 08, 2018 Assessment & Plan (1) Volvulus of colon: Postop day 4 status post right hemicolectomy Passing flatus but remains distended and had vomiting We will decrease diet today Encouraged ambulation Present on Admission?: Yes Subjective Postoperative day #4 status post right hemicolectomy Had 4 episodes of vomiting last night but did not let nursing staff know. Nausea has resolved this morning Is passing flatus but has not had a bowel movement Physical Exam Gastrointestinal (Abdomen): Inspection/Auscultation: + abdomen distended (Slightly more than yesterday) and + abdominal surgical incision (Some surrounding ecchymosis but no erythema and otherwise intact) Percussion/Palpation: + abdomen tender (Incisional only) and abdomen soft Results & Data Vital Signs (Past 12 Hours) Vital Signs Temp Pulse Resp BP Pulse Ox 11/08/18 06:59 36.9 C 92 H 18 165/93 H 95 11/07/18 23:42 36.9 C 88 18 178/76 H 95
[2018-11-08] MEDS: KETOROLAC TROMETHAMINE 15 MG/ML VIAL IV PRN (15:59)
[2018-11-08] MEDS: ACETAMINOPHEN 1,000 MG/100 ML VIAL IV PRN (20:34)
[2018-11-08] MEDS: ROPINIROLE HCL 0.25 MG TABLET PO SCH (20:42)
[2018-11-09] MEDS ORDERED: LISINOPRIL 20 MG TAB PO STA (04:08)
[2018-11-09] MEDS: ACETAMINOPHEN 1,000 MG/100 ML VIAL IV PRN (05:22)
[2018-11-09] MEDS: LEVOTHYROXINE SODIUM 50 MCG TABLET PO SCH (05:22)
[2018-11-09] MEDS: VENLAFAXINE HCL XR 150 MG CAPXR PO SCH ×2 (08:12→21:20)
[2018-11-09] MEDS: LISINOPRIL 5 MG TAB PO SCH (08:12)
[2018-11-09] MEDS: ENOXAPARIN INJ 40 MG/0.4 ML SYR SQ SCH (08:13)
--- NOTE | 2018-11-09 08:47 | Surgery Progress Note ---
Date of Service November 09, 2018 Assessment & Plan (1) Volvulus of colon: POD 5 lap assisted right colectomy can have full liquids repeat labs, check H&H, K+ resume lisinopril 20 mg daily Supervising Physician Co-Signing Physician Notes Patient seen and examined, notes from the weekend reviewed, agree with above. POD #5 laparoscopic right hemicolectomy. She was advancing her diet over the weekend she developed some vomiting on Friday night after eating [email or web address]. This morning she is feeling well and is hungry. She tolerated clear liquids and would like to try full liquids. She is passing more flatus, but has not had a bowel movement yet. Hypertension over the weekend, will restart lisinopril. Abdomen soft, mildly distended and tympanitic to percussion, appropriately tender to palpation and improving. We will obtain labs, advance to full liquids, and await return of bowel movements. She does have a history of constipation and may need a good bowel regimen. Subjective N/V over the weekend, better this morning, hungry, more flatus but no BM Physical Exam Gastrointestinal (Abdomen): Inspection/Auscultation: + abdomen distended (mild) Percussion/Palpation: abdomen soft Results & Data Vital Signs (Past 12 Hours) Vital Signs Temp Pulse Pulse Resp BP Pulse Ox 11/09/18 08:00 36.9 C 85 16 160/78 H 100 11/09/18 06:13 184/73 H 11/09/18 03:50 36.9 C 80 18 183/84 H 98 11/08/18 23:07 37.0 C 82 17 188/83 H 96 PG Care Time/CCT Total # of Minutes Spent Total Time Spent with Patient: Total time spent is greater than 50% in coordination of care (as documented) at patient's floor/unit and/or counseling patient:
[2018-11-09 09:00] LABS: Basophils # (auto) 0.01 K/uL (0-0.2); Basophils % (auto) 0.1 %; Eosinophils # (auto) 0.43 K/uL (0-0.5); Hematocrit (blood only) 34.1 % (37-47); Hemoglobin 11.6 g/dL (12.0-16.0); Immature Granulocytes # (auto) 0.02 K/uL (0.00-0.02); Immature Granulocytes % (auto) 0.3 %; Lymphocytes # (auto) 1.06 K/uL (1.2-3.4); Lymphocytes % (auto) 14.7 %; Mean Corpuscular Volume 88.1 fL (80-100); Mean Platelet Volume 8.3 fL (7.4-10.4); Monocytes # (auto) 0.72 K/uL (0.11-0.59); Neutrophils # (auto) 4.96 K/uL (1.4-6.5); Neutrophils % (auto) 68.9 %; Platelet Count 400 K/uL (130-400); RDW Coefficient of Variation 12.7 % (11.5-14.5); RDW Standard Deviation 40.6 fL (36.4-46.3); Red Blood Count 3.87 M/uL (4.2-5.4)
[2018-11-09 09:08] LABS: BUN Creatinine Ratio 21.7 (10-20); Calcium 9.2 mg/dl (8.5-10.1); Creatinine Clr Calc Pharmacy 76.7 ml/min; Est GFR (African American) 111.7; Est GFR (Non-African American) 96.4; Potassium 3.7 mmol/L (3.5-5.1)
[2018-11-09] MEDS: KETOROLAC TROMETHAMINE 15 MG/ML VIAL IV PRN (10:39)
[2018-11-09] MEDS: OXYCODONE/ACETAMINOPHEN 5mg/325mg TAB PO PRN ×2 (15:31→21:19)
[2018-11-09] MEDS: ROPINIROLE HCL 0.25 MG TABLET PO SCH (21:21)
[2018-11-10] MEDS: LEVOTHYROXINE SODIUM 50 MCG TABLET PO SCH (06:27)
[2018-11-10] MEDS: OXYCODONE/ACETAMINOPHEN 5mg/325mg TAB PO PRN ×3 (06:28→20:53)
[2018-11-10] MEDS: ENOXAPARIN INJ 40 MG/0.4 ML SYR SQ SCH (07:53)
[2018-11-10] MEDS: VENLAFAXINE HCL XR 150 MG CAPXR PO SCH ×2 (07:54→20:53)
[2018-11-10] MEDS: LISINOPRIL 20 MG TAB PO SCH (07:54)
--- NOTE | 2018-11-10 08:27 | Surgery Progress Note ---
Date of Service November 10, 2018 Assessment & Plan (1) Volvulus of colon: POD 5 lap assisted right colectomy wants to stay on full liquids, maybe advance later today H&H, K+ stable Supervising Physician Co-Signing Physician Notes Pnt S&E, agree with above. POD#6 lap ext right hemicolectomy for h/o volvulus. Tolerating full liquids, passing more gas but no bm. Would like to try low fiber diet. on exam afvss, incision with lela, no e/o infection, less distended and less tympanitic. labs from yesterday normal. Path with tubular adenoma, melanosis coli, and some submucosal edema c/w h/o volvulus. advance to low fiber diet low fiber diet teaching add colace and prn miralax possible d/c tomorrow if bm and tolerates diet. Subjective tolerating full liquids but in small amounts, no BM but + flatus Physical Exam Gastrointestinal (Abdomen): Inspection/Auscultation: + abdomen distended (less) and + abdominal surgical incision (clean, dry) Percussion/Palpation: abdomen soft Results & Data Vital Signs (Past 12 Hours) Vital Signs Temp Pulse Resp BP Pulse Ox 11/10/18 07:10 36.8 C 78 16 160/80 H 96 11/10/18 00:06 36.9 C 83 16 172/82 H 98 PG Care Time/CCT Total # of Minutes Spent Total Time Spent with Patient: Total time spent is greater than 50% in coordination of care (as documented) at patient's floor/unit and/or counseling patient:
[2018-11-10] MEDS ORDERED: ACETAMINOPHEN 325 MG TAB PO PRN (08:47)
[2018-11-10] MEDS ORDERED: POLYETHYLENE (MIRALAX) 17 GM PACK PO PRN (13:07)
[2018-11-10] MEDS: DOCUSATE SODIUM 100 MG CAP PO SCH ×2 (13:59→20:54)
[2018-11-10] MEDS: ROPINIROLE HCL 0.25 MG TABLET PO SCH (20:54)
[2018-11-11] MEDS: OXYCODONE/ACETAMINOPHEN 5mg/325mg TAB PO PRN ×2 (04:36→13:10)
[2018-11-11] MEDS: LEVOTHYROXINE SODIUM 50 MCG TABLET PO SCH (06:03)
[2018-11-11] MEDS: LISINOPRIL 20 MG TAB PO SCH (08:29)
[2018-11-11] MEDS: VENLAFAXINE HCL XR 150 MG CAPXR PO SCH (08:29)
[2018-11-11] MEDS: ENOXAPARIN INJ 40 MG/0.4 ML SYR SQ SCH (08:30)
[2018-11-11] MEDS: DOCUSATE SODIUM 100 MG CAP PO SCH (08:32)
[2018-11-11] MEDS ORDERED: BISACODYL 10 MG SUPP PR STA (08:35)
--- NOTE | 2018-11-11 08:35 | Surgery Progress Note ---
Date of Service November 11, 2018 Assessment & Plan (1) Volvulus of colon: POD7 laparoscopic right eileen colectomy Tolerating low fiber diet without n/v/pain Will continue oral bowel regimen in addition to suppository if patient willing Possible discharge today pending + bowel movement Supervising Physician Co-Signing Physician Notes Patient seen and examined, agree wtih above. POD#7 lap ext right hemicolectomy. Doing well, tolerated low fiber diet, passing copious amounts of flatus. No bm, took colace, miralax, and suppository, feels like she might go. Ambulating, pain controlled. abd soft, less distended, incision healing well with s/s of infx. possible d/c with or without bm this afternoon. follow up next week. return precautions, wound care instructions, activity and diet restrictions reviewed. Subjective Patient feeling well this AM. States she ate chicken yesterday for lunch and dinner of which she tolerated well without nausea/vomiting. She endorses passing flatus, but still no BM. Says she took some stool softeners yesterday and has been ambulating the halls frequently. Physical Exam Constitutional: WD/WN, vitals as above no acute distress Gastrointestinal (Abdomen): Inspection/Auscultation: + abdominal surgical incision (clean, dry, intact) Percussion/Palpation: abdomen soft; abdomen nontender Results & Data Vital Signs (Past 12 Hours) Vital Signs Temp Pulse Resp BP Pulse Ox 11/10/18 23:10 36.8 C 74 18 158/78 H 98 PG Care Time/CCT Total # of Minutes Spent Total Time Spent with Patient: Total time spent is greater than 50% in coordination of care (as documented) at patient's floor/unit and/or counseling patient:
--- NOTE | 2018-11-11 11:35 | Discharge Summary ---
Date of Service November 11, 2018 Principal Diagnosis Cecal Volvulus HTN Discharge Exam Constitutional WD/WN, vitals as above cooperative and comfortable; no acute distress Gastrointestinal (Abdomen) Inspection/Auscultation: + abdominal surgical incision (clean, dry, intact with surgical lela in place) Percussion/Palpation: abdomen soft; abdomen nontender Discharge Data Allergies Allergy/AdvReac Type Severity Reaction Status Date / Time propranolol AdvReac Unknown fatigue, Verified 11/04/18 09:12 weakness Procedures Performed Operation Date: 11/04/18 10:00 Actual Procedures p Right Laparoscopic Hemicolectomy(Right) - Dillan Lancaster DO, FACS Hospital Course (1) Volvulus of colon: This is a 68y F who presents to [facility] [place] on 11/04/18 for a planned laparoscopic right hemicolectomy, after she was recently evaluated in the ED for findings of cecal volvulus that had resolved. The patient tolerated the surgical procedure well, see op note for full details. Post operatively the patient's pain was managed with an IV pain regimen that was transitioned to oral once tolerating a liquid diet. Patient was slow to progress due to nausea and vomiting on POD4, however resolved with backing her diet to clears. On POD5 patient was passing flatus and nausea improved, therefore diet advanced slowly from fulls to low fiber. The patient was out of bed ambulating frequently. Labs remained unremarkable and patient's home lisinopril was restarted for HTN. A bowel regimen was started and on 11/11/18 she passed a BM and was discharged to home. Upon discharge her surgical wounds were clean, dry, and with lela intact. She was instructed to follow up in clinic within 1 week. Total Time Total Time Spent Total Time Spent (In Minutes): 15 Discharge Plan Discharge Items Patient Disposition: Home - Self-Care Reason For Visit: Cecal Volvulus Discharge Diagnosis: laparoscopic assisted right hemicolectomy Discharge Goals: Decrease discomfort, Improve disease control, Improve function and Improve nutritional status Activity: Per 'Additional Instructions' section Lifting Comment: no more than 10 pounds Bathing Comment: you may shower starting today Exercise/Sports: Wait until after follow-up appointment Driving/Machine Use: Resume 3 days after discharge Non-emergency contact: Surgeon Call non-emergency contact if: you have any medication questions, your pain is not controlled, your pain is concerning for you, you have a fever, your temperature is above 101.5 and your wound pain has increased Follow-up/Referrals: Dillan Lancaster DO, FACS [Physician] - (Please follow up in clinic within 2 weeks. You may call the office sooner if you have any questions/concerns.) Siria Reilly CRNP [Primary Care Provider] - Diet: Low Fiber Addtl Provider Instructions: Your abdominal lela will be removed when you follow up in clinic. Prescriptions: New oxycodone-acetaminophen [Percocet] 5-325 mg tablet 1 - 2 tab PO Q4H PRN (Reason: pain, for initial therapy) Qty: 15 RF: 0 Continued clonazepam 1 mg tablet 0.5 mg PO QAM Qty: 30 RF: 3 ibuprofen 200 mg tablet 200 mg PO Q8H PRN (Reason: Pain) RF: 0 multivitamin Tablet 1 tab PO QAM RF: 0 [id number]-ljowvihbvlmtb-xhfm 50-325-40 mg Capsule 1 cap PO DAILY PRN (Reason: Migraine Headache) RF: 0 venlafaxine 150 mg Capsule,Extended Release 24hr 150 mg PO BID RF: 0 cyanocobalamin (vitamin B-12) [Vitamin B-12] 1,000 mcg Tablet 1,000 mcg PO QAM RF: 0 halobetasol propionate [Ultravate] 0.05 % Cream 1 applic TOPICAL BID PRN (Reason: Rash) RF: 0 cholecalciferol (vitamin D3) [Vitamin D3] 1,000 unit Capsule 1,000 unit PO QAM RF: 0 Probiotic 3 billion cell Capsule 1 tab PO QAM RF: 0 Calcium 600 + D(3) 600 mg calcium- 200 unit capsule 2 cap PO DAILY RF: 0 fluticasone propionate [Flonase Allergy Relief] 50 mcg/actuation spray,suspension 2 spray INTRANASAL DAILY PRN (Reason: Allergy Symptoms) RF: 0 ropinirole 0.25 mg tablet 0.75 mg PO QPM RF: 0 lisinopril 20 mg tablet 20 mg PO QAM RF: 0 levothyroxine 50 mcg tablet 50 mcg PO QAM RF: 0 magnesium oxide 400 mg magnesium Capsule 400 mg PO DAILY RF: 0 Herbal Laxative 1 tab PO DAILY RF: 0 triamcinolone acetonide 0.1 % Cream 1 applic TOPICAL UD PRN (Reason: Rash) RF: 0 diphenhydramine HCl [Benadryl] 25 mg Capsule 25 mg PO UD PRN (Reason: Rash) RF: 0 Zyrtec 10 mg Capsule 10 mg PO UD PRN (Reason: Rash) RF: 0 Stand-Alone Forms: [employer], Opioid Pain [facility] [employer]/Other Patient Handouts: Surgery Prevent DVT After Discharge Orders: Discharge Order (Routine); Ordered 11/11/18 Ordered By: Joan Joseph Admission Data Admit Date/Time: 11/04/18 13:35 Attending Provider: Dillan Lancaster Admit Provider: Dillan Lancaster Primary Care Provider: Siria Reilly I Service: Surgical Services Other Interventions: Discharge Summary Assessment (RN) Last Done: 11/11/18 13:41 DC Date/Time DO NOT enter until pt leaves facility: 11/11/18 14:59
== END 2018-11-11 14:59 | disposition home or self-care (01) | DRG 331 ==
LOC: ASU 08:39 → 3N 13:35

== ENCOUNTER 2021-05-07 09:21 | Observation (INO) ==
--- NOTE | 2020-11-27 09:48 | PAT Medication Instructions ---
Medication Instructions Date of Service November 27, 2020 Home Medications Medication Instructions Recorded venlafaxine 150 mg 150 mg PO BID #180 cap 01/04/20 capsule,extended release 24 hr levothyroxine 50 mcg tablet 50 mcg PO QAM #90 tab 09/11/20 lisinopril 20 mg tablet 20 mg PO QAM #90 tab 09/11/20 cyclobenzaprine 5 mg tablet 5 mg PO TID PRN #90 tab 10/05/20 hydrocodone 5 mg-acetaminophen 325 1 tab PO Q8H PRN #20 tab 11/15/20 mg tablet cholecalciferol (vitamin D3) 25 mcg (1,000 unit) capsule (Vitamin D3) 1,000 unit PO QAM multivitamin 1 tab PO QAM magnesium oxide 800 mg PO QAM venlafaxine 150 mg capsule,extended release 24 hr 150 mg PO BID halobetasol propionate 0.05 % topical cream 1 applic TOPICAL BID PRN triamcinolone acetonide 0.5 % topical cream 1 applic TOPICAL BID PRN levothyroxine 50 mcg tablet 50 mcg PO QAM lisinopril 20 mg tablet 20 mg PO QAM cyclobenzaprine 5 mg tablet 5 mg PO TID PRN hydrocodone 5 mg-acetaminophen 325 mg tablet 1 tab PO Q8H PRN calcium 500 mg tablet 500 mg PO QAM ropinirole 0.25 mg tablet 0.75 mg PO QPM thiamine HCl (vitamin B1) 100 mg tablet 100 mg PO QAM STOP taking 24 hours before surgery halobetasol propionate 0.05 % topical cream 1 applic TOPICAL BID PRN triamcinolone acetonide 0.5 % topical cream 1 applic TOPICAL BID PRN DO NOT take the morning of surgery cholecalciferol (vitamin D3) 25 mcg (1,000 unit) capsule (Vitamin D3) 1,000 unit PO QAM multivitamin 1 tab PO QAM magnesium oxide 800 mg PO QAM lisinopril 20 mg tablet 20 mg PO QAM cyclobenzaprine 5 mg tablet 5 mg PO TID PRN calcium 500 mg tablet 500 mg PO QAM thiamine HCl (vitamin B1) 100 mg tablet 100 mg PO QAM Take morning of surgery With a small sip of water, OTHERWISE NOTHING TO EAT OR DRINK AFTER MIDNIGHT: venlafaxine 150 mg capsule,extended release 24 hr 150 mg PO BID levothyroxine 50 mcg tablet 50 mcg PO QAM hydrocodone 5 mg-acetaminophen 325 mg tablet 1 tab PO Q8H PRN (okay to take up to 4 hours prior to surgery if needed) Take evening before surgery venlafaxine 150 mg capsule,extended release 24 hr 150 mg PO BID cyclobenzaprine 5 mg tablet 5 mg PO TID PRN (if needed) hydrocodone 5 mg-acetaminophen 325 mg tablet 1 tab PO Q8H PRN (if needed) ropinirole 0.25 mg tablet 0.75 mg PO QPM Other Notes If you have any questions please call us at [phone] or [phone] or [phone] or [phone]
--- NOTE | 2020-12-05 16:47 | PAT Medication Instructions ---
Medication Instructions Date of Service December 05, 2020 Home Medications Medication Instructions Recorded levothyroxine 50 mcg tablet 50 mcg PO QAM #90 tab 09/11/20 cyclobenzaprine 5 mg tablet 5 mg PO TID PRN #90 tab 10/05/20 hydrocodone 5 mg-acetaminophen 325 1 tab PO Q8H PRN #20 tab 11/15/20 mg tablet lisinopril 20 mg tablet 20 mg PO QAM #7 tab 12/05/20 venlafaxine 150 mg 150 mg PO BID #14 cap 12/05/20 capsule,extended release 24 hr cholecalciferol (vitamin D3) 25 mcg (1,000 unit) capsule (Vitamin D3) 1,000 unit PO QAM multivitamin 1 tab PO QAM magnesium oxide 800 mg PO QAM halobetasol propionate 0.05 % topical cream 1 applic TOPICAL BID PRN triamcinolone acetonide 0.5 % topical cream 1 applic TOPICAL BID PRN levothyroxine 50 mcg tablet 50 mcg PO QAM cyclobenzaprine 5 mg tablet 5 mg PO TID PRN hydrocodone 5 mg-acetaminophen 325 mg tablet 1 tab PO Q8H PRN calcium 500 mg tablet 500 mg PO QAM ropinirole 0.25 mg tablet 0.75 mg PO QPM thiamine HCl (vitamin B1) 100 mg tablet 100 mg PO QAM lisinopril 20 mg tablet 20 mg PO QAM venlafaxine 150 mg capsule,extended release 24 hr 150 mg PO BID STOP taking 24 hours before surgery halobetasol propionate 0.05 % topical cream 1 applic TOPICAL BID PRN triamcinolone acetonide 0.5 % topical cream 1 applic TOPICAL BID PRN DO NOT take the morning of surgery cholecalciferol (vitamin D3) 25 mcg (1,000 unit) capsule (Vitamin D3) 1,000 unit PO QAM multivitamin 1 tab PO QAM magnesium oxide 800 mg PO QAM cyclobenzaprine 5 mg tablet 5 mg PO TID PRN calcium 500 mg tablet 500 mg PO QAM thiamine HCl (vitamin B1) 100 mg tablet 100 mg PO QAM lisinopril 20 mg tablet 20 mg PO QAM Take morning of surgery With a small sip of water, OTHERWISE NOTHING TO EAT OR DRINK AFTER MIDNIGHT: levothyroxine 50 mcg tablet 50 mcg PO QAM hydrocodone 5 mg-acetaminophen 325 mg tablet 1 tab PO Q8H PRN (okay to take up to 4 hours prior to surgery if needed) venlafaxine 150 mg capsule,extended release 24 hr 150 mg PO BID Take evening before surgery cyclobenzaprine 5 mg tablet 5 mg PO TID PRN (if needed) hydrocodone 5 mg-acetaminophen 325 mg tablet 1 tab PO Q8H PRN (if needed) ropinirole 0.25 mg tablet 0.75 mg PO QPM venlafaxine 150 mg capsule,extended release 24 hr 150 mg PO BID Other Notes If you have any questions please call us at [phone] or [phone] or [phone] or [phone]
--- NOTE | 2020-12-07 13:29 | Anesthesiology Consultation ---
Date of Service December 07, 2020 Assessment & Plan (1) Encounter for pre-operative examination: Chart Review Chart Review: Acceptable Risk for Surgery (pending preop Covid testing results ) and Patient seen in Pre Admission Testing Per PAT appt on 12/07/20, patient denies any recent travel or large group activities. No known Covid positive contacts or Covid related symptoms. No known Covid infection in the past 90 days. Pt is vaccinated for Covid Preop Covid testing scheduled 12/22/20 = will await results. Educated on importance of self quarantining, social distancing and wearing mask in public for the patient one week prior to surgery and after Covid testing done History Surgery Operation Date: 12/26/20 13:10 Proposed Procedures p Right Anterior Total Hip Replacement - Toño Lara, Height/Weight Height: 5 ft 5 in Weight: 51.8 kg Allergies Allergy/AdvReac Type Severity Reaction Status Date / Time propranolol Allergy Mild fatigue, Verified 11/23/20 09:02 weakness gabapentin AdvReac diarrhea Verified 11/23/20 09:02 Medications Home Medications Medication Instructions Recorded Confirmed Last Taken cholecalciferol (vitamin D3) 25 1,000 unit PO QAM 04/27/18 11/23/20 11/03/18 07:00 mcg (1,000 unit) capsule (Vitamin D3) multivitamin 1 tab PO QAM 04/27/18 11/23/20 11/03/18 07:00 magnesium oxide 800 mg PO QAM 10/07/18 11/23/20 11/03/18 07:00 halobetasol propionate 0.05 % 1 applic TOPICAL BID PRN 07/17/20 11/23/20 Unknown topical cream triamcinolone acetonide 0.5 % 1 applic TOPICAL BID PRN 07/17/20 11/23/20 Unknown topical cream levothyroxine 50 mcg tablet 50 mcg PO QAM #90 tab 09/11/20 11/23/20 Unknown cyclobenzaprine 5 mg tablet 5 mg PO TID PRN #90 tab 10/05/20 11/23/20 Unknown hydrocodone 5 mg-acetaminophen 325 1 tab PO Q8H PRN #20 tab 11/15/20 11/23/20 Unknown mg tablet calcium 500 mg tablet 500 mg PO QAM 11/23/20 11/23/20 Unknown ropinirole 0.25 mg tablet 0.75 mg PO QPM 11/23/20 11/23/20 Unknown thiamine HCl (vitamin B1) 100 mg 100 mg PO QAM 11/23/20 11/23/20 Unknown tablet lisinopril 20 mg tablet 20 mg PO QAM #7 tab 12/05/20 Unknown venlafaxine 150 mg 150 mg PO BID #14 cap 12/05/20 Unknown capsule,extended release 24 hr Past Medical History Medical History Acid reflux diet controlled Asymmetrical left sensorineural hearing loss No hearing aid needed Cataract Bilateral - still able to read Chronic constipation Degenerative disc disease Depression History of migraine Stable History of right breast cancer 1997 s/p radiation/ right breast lumpectomy with LND Right UE restriction HTN (hypertension) Hypothyroidism Osteoporosis Primary malignant neoplasm of right lower lobe of lung (~07/2015) 2015 -- sx No chemo or XRT RLS (restless legs syndrome) Stable Spinal stenosis Transient ischemic attack (TIA) 2014--follows with Dr. Najera, no deficits Exercise / Class Metabolic Activity II 4-5 Yardwork/Stairs/Walk up hill (one flight of stairs - no chest pain or SOB ) Past Family History Family History Unknown Cancer Mother Breast cancer Cancer Brother Suicide Other No family history of adverse response to anesthesia Denies family history of Ovarian cancer Prostate cancer Myocardial infarction Lung cancer Colorectal cancer Past Surgical History Surgical History H/O right hemicolectomy (11/04/18) Right Laparoscopic extended right hemicolectomy Dr. Lancaster 11-04-18 Secondary to volvulus History of colonoscopy (~03/2018) Repeat 3 yrs History of colposcopy with cervical biopsy History of dilatation and curettage History of left breast biopsy History of lobectomy of lung (~07/2015) right lower lobe d/t cancer History of lumpectomy of right breast + LND History of right breast biopsy "malignant" History of tonsillectomy and adenoidectomy History of total abdominal hysterectomy and bilateral salpingo-oophorectomy History of wisdom tooth extraction Past Anesthesia History No Hx of Anesthesia Complications and No Family Hx of Anesthesia Complications History of PONV No Hx of PONV and No Hx of Motion Sickness Social History Smoking Status: Former smoker tobacco type: cigarettes Do You Dip or Chew Tobacco: No Smoking End Date: 1997 Hx Alcohol Use: Yes Alcohol type: beer and wine alcohol intake frequency: 3 or more drinks per day (3-4 glasses/day) Hx Substance Use: No substance use type: does not use Review of Systems Patient denies chest pain, shortness of breath, dyspnea on exertion, cough, wheezing, palpitations. No hx of seizures, [place], apnea/snoring. No hx of blood clots or blood transfusions Physical Exam Vital Signs VITALS BP 112/67 P 81 TEMP 98.7 SP02 98% RESP 16 Constitutional no acute distress ENMT Mouth: no TMJ clicking Thyromental Distance: > or= 3.5 Finger Breadths (3.5) Mallampati Class: I Missing molar Caps to top front teeth Neck + limited neck extension (minimal ) Respiratory normal respiratory effort; no respiratory distress Auscultation: lungs clear to auscultation bilaterally; no wheezes Cardiovascular Rate/Rhythm: regular rate and regular rhythm Heart Sounds: no murmur Vessels: no carotid bruit Musculoskeletal Spine: no pain with cervical ROM Extremities: extremities normal to inspection Psychiatric Orientation: alert Lab Results Anesthesia Preop Results Results Anesthesia Widget: WBC 5.01 K/uL (4.8-10.8) 12/07/20 Hgb 13.0 g/dL (12.0-16.0) 12/07/20 Hct 38.9 % (37-47) 12/07/20 Plt 363 K/uL (130-400) 12/07/20 Na 137 mmol/L (136-145) 12/07/20 K 4.2 mmol/L (3.5-5.1) 12/07/20 Cl 104 mmol/L (98-107) 12/07/20 CO2 26 mmol/L (21-32) 12/07/20 BUN 12 mg/dl (7-18) 12/07/20 Creat 0.70 mg/dl (0.6-1.2) 12/07/20 Glucose Level 83 mg/dl (70-99) 12/07/20 PT 9.8 Seconds (9.0-12.0) 12/07/20 PTT 25.9 Seconds (21.0-31.0) 12/07/20 INR 1.0 (0.9-1.1) 12/07/20 Blood Type O Positive 12/07/20 Antibody Screen NEGATIVE 12/07/20 Testing Electrocardiogram Date: 06/20/20 Findings: + NSR @ (79bpm ) Normal EKG per cardio. Stress Test Date: 05/29/15 Type: DSE Findings: + WNL Resting EF: 60% Negative DSE for KS at 90% MPHR. No induced chest pain. Normal LV function. Other Testing Chest CT 07/28/2020 = Overall, no significant change compared to the prior study. Postoperative changes of right upper lobectomy and post radiation change. No evidence for metastatic disease within the chest. Mild emphysema. Healing left anterior seventh rib fracture.
--- NOTE | 2021-05-03 15:19 | History & Physical Report ---
Date of Service May 03, 2021 Assessment & Plan (1) Primary osteoarthritis of right hip: We will proceed with a right anterior total of arthroplasty. Postoperatively she will be started on aspirin for DVT prophylaxis and kept overnight in the hospital for postoperative medical management. She plans to use energy physical therapy upon discharge. History of Present Illness Chief Complaint: Osteoarthritis of the right hip. Primary Care Provider: Toño Caldera DO [place] is a pleasant 70-year-old female who is been with chronic worsening right hip and groin pain. X-rays clinical examination been diagnostic for advanced osteoarthritis of the right hip. After failing conservative treatment, she has elected to proceed with a right anterior total hip arthroplasty.. Allergies Allergy/AdvReac Type Severity Reaction Status Date / Time propranolol Allergy Mild fatigue, Verified 04/30/21 09:15 weakness gabapentin AdvReac diarrhea Verified 04/30/21 09:15 Home Medications Medication Instructions Recorded Confirmed Type cholecalciferol (vitamin D3) 25 1,000 unit PO QAM 04/27/18 04/30/21 History mcg (1,000 unit) capsule (Vitamin D3) multivitamin 1 tab PO QAM 04/27/18 04/30/21 History magnesium oxide 800 mg PO QAM 10/07/18 04/30/21 History halobetasol propionate 0.05 % 1 applic TOPICAL BID PRN 07/17/20 04/30/21 History topical cream triamcinolone acetonide 0.5 % 1 applic TOPICAL BID PRN 07/17/20 04/30/21 History topical cream levothyroxine 50 mcg tablet 50 mcg PO QAM #90 tab 09/11/20 04/30/21 Rx cyclobenzaprine 5 mg tablet 5 mg PO TID PRN #90 tab 10/05/20 04/30/21 Rx thiamine HCl (vitamin B1) 100 mg 100 mg PO QAM 11/23/20 04/30/21 History tablet venlafaxine 150 mg 150 mg PO BID #180 cap 12/15/20 04/30/21 Rx capsule,extended release 24 hr lisinopril 20 mg tablet 20 mg PO QAM #90 tab 01/23/21 04/30/21 Rx [id number] 1 cap PO Q8H PRN 02/07/21 04/30/21 History 50 mg-300 mg-40 mg capsule (Fioricet) calcium carbonate 500 mg calcium 500 mg PO QAM 02/07/21 04/30/21 History (1,250 mg) tablet (Calcium 500) camphor-menthol 0.2 %-3.5 % 1 applic TOPICAL BID PRN 02/07/21 04/30/21 History topical gel cyanocobalamin (vitamin B-12) 1,000 mcg PO QAM 02/07/21 04/30/21 History 1,000 mcg capsule ropinirole 0.25 mg tablet 0.75 mg PO QPM #90 tab 03/14/21 04/30/21 Rx pregabalin 100 mg capsule 100 mg PO BID 30 Days #60 cap 03/29/21 04/30/21 Rx hydrocodone 5 mg-acetaminophen 325 1 tab PO Q6H PRN #30 tab 04/11/21 04/30/21 Rx mg tablet Past Med/Surg History Medical History Acid reflux diet controlled Asymmetrical left sensorineural hearing loss No hearing aid needed Broken arm BROKEN RIGHT 01/05/21-IN CAST Cataract Bilateral - still able to read Chronic constipation Degenerative disc disease Depression Gait difficulty WALKS WITH A CANE History of migraine Stable History of right breast cancer 1997 s/p radiation/ right breast lumpectomy with LND Right UE restriction HTN (hypertension) Hypothyroidism Osteoporosis Primary malignant neoplasm of right lower lobe of lung (~07/2015) 2016 -- sx No chemo or XRT RLS (restless legs syndrome) Stable Spinal stenosis Transient ischemic attack (TIA) 2014--follows with Dr. Najera, no deficits Surgical History H/O right hemicolectomy (11/04/18) Right Laparoscopic extended right hemicolectomy Dr. Lancaster 11-04-18 Secondary to volvulus History of colonoscopy (~03/2018) Repeat 3 yrs-LAST ONE 2019 History of colposcopy with cervical biopsy History of dilatation and curettage History of left breast biopsy History of lobectomy of lung (~07/2015) right lower lobe d/t cancer History of lumpectomy of right breast + LND History of right breast biopsy "malignant" History of tonsillectomy and adenoidectomy History of total abdominal hysterectomy and bilateral salpingo-oophorectomy History of wisdom tooth extraction Family History Unknown Cancer Mother Breast cancer Cancer Brother Suicide Other No family history of adverse response to anesthesia Denies family history of Ovarian cancer Prostate cancer Myocardial infarction Lung cancer Colorectal cancer Social History Smoking Status: Former smoker Tobacco Type: Cigarettes Second Hand Exposure: No; Hx Alcohol Use: Yes Alcohol type: beer and wine Alcohol Intake Frequency: 2-3 x/Week Hx Substance Use: Yes Preferred Language: Kazakh Communication Ability: Effective Visual Impairment: Limited Hearing Ability: Normal Braille Transcriber Required: No Beliefs That Will Affect Care: None marital status: / Current Living Situation: Significant Other Current Living Situation Comment: [facility] current occupational status: retired How many Children do You have: 0 Feels Safe at Home: Yes Childhood Exposure to Second-Hand Smoke: No caffeine: Yes Dental Care, Regularly: Yes Physical Activity Frequency: Does not Exercise Seatbelt Use: always Sunscreen Use: No Assistive Devices: Cane and Glasses Review of Systems All systems reviewed & are unremarkable except as noted in HPI & below. Physical Exam On physical examination the right hip, her leg lengths are equal. She has pain with range of motion of her hip. All of her pains of daily in her groin. She has pain with forced internal and external rotation. Constitutional WD/WN, vitals as above Eyes PERRL, conjunctivae normal, anicteric sclerae ENMT external ear and nose normal, oropharynx normal Neck trachea midline, no thyromegaly Respiratory normal respiratory effort Cardiovascular RRR, no murmur, no edema Gastrointestinal (Abdomen) normal bowel sounds, soft, nontender, no hepatosplenomegaly Psychiatric A+Ox3, euthymic affect Results & Data Results & Data Laboratory Results . Diagnostic Findings X-rays of the right hip show advanced osteoarthritis with joint space narrowing, osteophyte formation, and [id number] articulation. PG Care Time/CCT Total # of Minutes Spent Total Time Spent with Patient: Total time spent is greater than 50% in coordination of care (as documented) at patient's floor/unit and/or counseling patient: Coding Level of Care Code None Diagnoses Primary osteoarthritis of right hip M16.11
--- NOTE | 2021-05-04 08:49 | Anesthesiology Consultation ---
Date of Service May 04, 2021 Assessment & Plan (1) Encounter for pre-operative examination: Chart Review Chart Review: Acceptable Risk for Surgery (pending DOS labs ) and Patient NOT seen in Pre Admission Testing Pt rescheduled multiple times for surgery- seen in PAT 12/07/20- current scheduled 05/07/21 -No updated preop labs ordered- will order CBC with diff, PRP and coags for DOS. Per nursing assessment 04/30/21, patient returned from [place] 05/02/21- drove. Fully vaccinated for Covid. Wears mask. Avoids large crowds. No known Covid infection in the past 90 days. No known Covid positive exposures or Covid related symptoms. Preop Covid testing 05/03/21= negative. Pt is 23 hours observation (will need Her DOS in case she has a roommate) but will also order Her for DOS secondary to travel (will be home for 5 days on DOS). Will leave to anesthesia discretion if any additional precautions are needed. Last seen by neuro 03/14/21= pt seen for follow up on ataxia, lumbar stenosis, and RLS. Restless leg syndromestable continue current meds. Peripheral neuropathy, ataxia and history of heavy alcohol usein remission. Lumbar stenosis/neuropathic pain/right hip arthralgiaTHA pending but delayed due to Covid. Patient to continue following up with Ortho. Did give trial of Lyrica. Follow-up in 3 months. Last seen by PCP 01/23/21 (seen after arm fracture) = PCP aware of upcoming hip replacement > "fall unfortunately breaking right arm currently in a long-arm cast, this has delayed her scheduled surgery for right hip.. She is getting along well with the fracture.. Pain is controlled scheduled appointment with Ortho.noted the patient was drinking at a gathering and lost her balance falling with above fracture.. We again discussed the importance of the patient reducing her alcohol intake, preferably 0 however the patient has been unable to stop drinking completely.She continues to follow-up with Psychology, recommend outpatient treatment. Alcohol dependence has contributed to her sensory ataxia, abnormal gait and frequent falls.. Tends to drink wine at home sometimes to help with sleep and pain control. At the [facility] generally drinks beer.. Right hip pain scheduled for surgery, difficulty with walking, regular daily activities.. Unable to ambulate far secondary to pain.. Pain control has been difficult currently the orthopedic doctor is treating her with opioids for fracture. Depression denies concerns at this time taking Effexor b.i.d..encouraged the patient to continue to see Psychology.. Hypertension will refill the patient's lisinopril updated lab work close follow-up likely contributing factor is pain.. Depression continue Effexor continue follow-up with Psychology recommend outpatient treatment for alcoholism.. alcohol dependence/sensory ataxia and gait disorder along with right hip osteoarthritis" History Surgery Operation Date: 12/26/20 10:45 Proposed Procedures p Right Anterior Total Hip Replacement - Toño Lara DO Operation Date: 05/07/21 10:40 Proposed Procedures p Right Anterior Total Hip Arthroplasty - Toño Lara DO Height/Weight Height: 5 ft 5 in Weight: 50.349 kg Allergies Allergy/AdvReac Type Severity Reaction Status Date / Time propranolol Allergy Mild fatigue, Verified 04/30/21 09:15 weakness gabapentin AdvReac diarrhea Verified 04/30/21 09:15 Medications Home Medications Medication Instructions Recorded Confirmed Last Taken cholecalciferol (vitamin D3) 25 1,000 unit PO QAM 04/27/18 04/30/21 11/03/18 07:00 mcg (1,000 unit) capsule (Vitamin D3) multivitamin 1 tab PO QAM 04/27/18 04/30/21 11/03/18 07:00 magnesium oxide 800 mg PO QAM 10/07/18 04/30/21 11/03/18 07:00 halobetasol propionate 0.05 % 1 applic TOPICAL BID PRN 07/17/20 04/30/21 Unknown topical cream triamcinolone acetonide 0.5 % 1 applic TOPICAL BID PRN 07/17/20 04/30/21 Unknown topical cream levothyroxine 50 mcg tablet 50 mcg PO QAM #90 tab 09/11/20 04/30/21 Unknown cyclobenzaprine 5 mg tablet 5 mg PO TID PRN #90 tab 10/05/20 04/30/21 Unknown thiamine HCl (vitamin B1) 100 mg 100 mg PO QAM 11/23/20 04/30/21 Unknown tablet venlafaxine 150 mg 150 mg PO BID #180 cap 12/15/20 04/30/21 Unknown capsule,extended release 24 hr lisinopril 20 mg tablet 20 mg PO QAM #90 tab 01/23/21 04/30/21 Unknown [id number]-[id number]-[id number] 1 cap PO Q8H PRN 02/07/21 04/30/21 Unknown 50 mg-300 mg-40 mg capsule (Fioricet) calcium carbonate 500 mg calcium 500 mg PO QAM 02/07/21 04/30/21 Unknown (1,250 mg) tablet (Calcium 500) camphor-menthol 0.2 %-3.5 % 1 applic TOPICAL BID PRN 02/07/21 04/30/21 Unknown topical gel cyanocobalamin (vitamin B-12) 1,000 mcg PO QAM 02/07/21 04/30/21 Unknown 1,000 mcg capsule ropinirole 0.25 mg tablet 0.75 mg PO QPM #90 tab 03/14/21 04/30/21 Unknown pregabalin 100 mg capsule 100 mg PO BID 30 Days #60 cap 03/29/21 04/30/21 Unknown hydrocodone 5 mg-acetaminophen 325 1 tab PO Q6H PRN #30 tab 04/11/21 04/30/21 Unknown mg tablet Past Medical History Medical History (Updated 05/04/21 @ 08:44 by Harleen Vega PA-C) Acid reflux diet controlled Asymmetrical left sensorineural hearing loss No hearing aid needed Broken arm BROKEN RIGHT 01/05/21 Followed with ortho- had cast and then PT- per 03/19/21 ortho note- pt can follow up PRN (aware of JERI in the future) Cataract Bilateral - still able to read Chronic constipation Degenerative disc disease Depression Gait difficulty WALKS WITH A CANE History of migraine Stable History of right breast cancer 1997 s/p radiation/ right breast lumpectomy with LND Right UE restriction HTN (hypertension) Hypothyroidism Osteoporosis Primary malignant neoplasm of right lower lobe of lung (~07/2015) 2016 -- sx No chemo or XRT RLS (restless legs syndrome) Stable Spinal stenosis Transient ischemic attack (TIA) 2014--follows with Dr. Najera, no deficits Past Family History Family History Unknown Cancer Mother Breast cancer Cancer Brother Suicide Other No family history of adverse response to anesthesia Denies family history of Ovarian cancer Prostate cancer Myocardial infarction Lung cancer Colorectal cancer Past Surgical History Surgical History H/O right hemicolectomy (11/04/18) Right Laparoscopic extended right hemicolectomy Dr. Lancaster 11-04-18 Secondary to volvulus History of colonoscopy (~03/2018) Repeat 3 yrs-LAST ONE 2019 History of colposcopy with cervical biopsy History of dilatation and curettage History of left breast biopsy History of lobectomy of lung (~07/2015) right lower lobe d/t cancer History of lumpectomy of right breast + LND History of right breast biopsy "malignant" History of tonsillectomy and adenoidectomy History of total abdominal hysterectomy and bilateral salpingo-oophorectomy History of wisdom tooth extraction Social History Smoking Status: Former smoker tobacco type: cigarettes Do You Dip or Chew Tobacco: No Smoking End Date: QUIT 1997 Hx Alcohol Use: Yes Alcohol type: beer and wine alcohol intake frequency: 0-2 drinks per day Hx Substance Use: Yes substance use type: prescription drug Testing Electrocardiogram Date: 06/20/20 Findings: + NSR @ (79bpm ) Normal EKG per cardio. Stress Test Date: 05/29/15 Type: DSE Findings: + WNL Resting EF: 60% Negative DSE for MT at 90% MPHR. No induced chest pain. Normal LV function. Other Testing Chest CT 07/28/2020 = Overall, no significant change compared to the prior study. Postoperative changes of right upper lobectomy and post radiation change. No evidence for metastatic disease within the chest. Mild emphysema. Healing left anterior seventh rib fracture.
[~2021-05-07 09:21] MED LIST changes: +ACETAMINOPHEN 500 MG TAB PO SCH; +BUPIVACAINE 0.5 % 5 MG/1 ML PF 10ML VIAL ONE; +FAMOTIDINE 20 MG TAB PO SCH; +GABAPENTIN 300 MG CAP PO SCH; +Ketorolac (*for OR use only*) 30 MG, dexAMETHasone 4 MG, KETAMINE HCL (**OR use only) 1... INFIL SCH; +LIDOCAINE 2% 2 ML VIAL/AMP(20MG/ML) INFIL ONE; -LR 15ML/HR IV SCH; +LR 500ML BOLUS, THEN 15ML/HR IV SCH; +LR 60ML/HR IV SCH; +MIDAZOLAM HCL 1 MG/ML 2ML VIAL ONE; +MISSING PHYSICIAN SIGNATURE ON ORDER SCH; +ONDANSETRON INJ 2 MG/ML 2 ML VIAL ONE; +PROPOFOL IV EMULSION 10 MG/ML 20 ML VIAL IV ONE; +ROPIVACAINE 0.5% HCL/PF 150 MG, BUPIVACAINE 0.75% MPF 20 ML, EPINEPHrine 30MG/30ML (OR ... INFIL SCH; +ROPIVACAINE 0.5% HCL/PF 150 MG, BUPIVACAINE 0.75% MPF 20 ML, EPINEPHrine 30MG/30ML (OR ... INSTIL SCH; +TRANEXAMIC ACID 1,000 MG **IV Intra-op IV SCH; +ceFAZolin 2000MG 2,000 MG/15 ML SYR IV SCH; -cefOXitin 2,000 MG in DEXTROSE 5% 50 ML IV SCH; +dexAMETHasone 4 MG TAB PO SCH; +fentaNYL citrate 100 MCG/2 ML VIAL ONE
--- NOTE | 2021-05-07 09:52 | History & Physical Bridge Note ---
Date of Service May 07, 2021 History & Physical Bridge Note I have examined the patient, reviewed the History & Physical and in the interval since the performance of the History & Physical I have noted the following changes of clinical significance: no changes noted
[2021-05-07 09:53] LABS: Basophils # (auto) 0.04 K/uL (0-0.2); Basophils % (auto) 0.8 %; Eosinophils # (auto) 0.09 K/uL (0-0.5); Eosinophils % (auto) 1.8 %; Hematocrit (blood only) 39.4 % (37-47); Hemoglobin 12.7 g/dL (12.0-16.0); Lymphocytes # (auto) 1.77 K/uL (1.2-3.4); Lymphocytes % (auto) 35.7 %; Mean Corpuscular Hemoglobin 30.1 pg (25-34); Mean Corpuscular Volume 93.4 fL (80-100); Mean Platelet Volume 8.8 fL (7.4-10.4); Neutrophils # (auto) 2.76 K/uL (1.4-6.5); Neutrophils % (auto) 55.7 %; Platelet Count 358 K/uL (130-400); RDW Coefficient of Variation 12.6 % (11.5-14.5); RDW Standard Deviation 42.5 fL (36.4-46.3); Red Blood Count 4.22 M/uL (4.2-5.4); White Blood Count 4.96 K/uL (4.8-10.8)
[2021-05-07 10:05] LABS: Partial Thromboplastin Time 26.8 Seconds (21.0-31.0); Prothrombin Time 9.9 Seconds (9.0-12.0)
[2021-05-07] MEDS ORDERED: ONDANSETRON INJ 2 MG/ML 2 ML VIAL IV PRN ×2 (10:07→13:22)
[2021-05-07] MEDS ORDERED: fentaNYL citrate 100 MCG/2 ML VIAL IV PRN (10:07)
[2021-05-07] MEDS ORDERED: ATROPINE SULFATE 0.1 MG/ML 10ML SYR IV PRN (10:07)
[2021-05-07] MEDS ORDERED: ePHEDrine sulfate 50 MG/ML AMP IV PRN (10:07)
[2021-05-07 10:17] LABS: Mean Corpuscular Hgb Conc 32.2 g/dL (32-36)
[2021-05-07 10:19] LABS: BUN Creatinine Ratio 18.7 (10-20); Calcium 9.3 mg/dl (8.5-10.1); Creatinine Clr Calc Pharmacy 60.1 ml/min; Est GFR (African American) 93.6 ml/min; Est GFR (Non-African American) 80.8 ml/min; Potassium 4.1 mmol/L (3.5-5.1)
[2021-05-07] MEDS ORDERED: ORTHO JOINT ANESTHETIC ONE (10:25)
[2021-05-07] MEDS ORDERED: TRANEXAMIC ACID / 0.7% NACL 1000MG/100ML BAG IV ONE ×3 (10:44→11:30)
[2021-05-07] MEDS ORDERED: TRANEXAMIC ACID 100 MG/ML 10 ML VIAL IV ONE (11:18)
--- NOTE | 2021-05-07 12:16 | Operative Report ---
PG Post Operative Report Pre & Post Diagnosis Operation Date: 12/26/20 10:45 <No data on this case meets the specified criteria> Operation Date: 05/07/21 10:40 Pre-Op Diagnosis: Right Hip Osteoarthritis Post-Op Diagnosis: Right Hip Osteoarthritis I identified the patient and participated in the time-out.: Yes Procedure Operation Date: 12/26/20 10:45 <No data on this case meets the specified criteria> Operation Date: 05/07/21 10:40 Actual Procedures p Right Anterior Total Hip Arthroplasty, Uncemeted(Right) - Toño Lara DO Surgeon Toño Lara, [employer] Operator Toño Euceda PAC Estimated Blood Loss 300 Findings Consistent with Post-Op Diagnosis Specimens Right femoral head Complications none Disposition Disposition: Recovery Room Indications Eleanor is a pleasant 70-year-old female who is been dealing with chronic worsening right hip and groin pain. X-rays and clinical examination have been diagnostic for advanced osteoarthritis of the right hip. After failing conservative treatment, she has elected to proceed with a right total hip arthroplasty. Description of Procedure Implants used I used a Zimmer[employer]omet total hip arthroplasty system with a size 5 high offset Avenir Complete stem, a 48 mm G7 cup with a 25mm screw, an E1 polyethylene liner, a 32 mm ceramic head with a -3.5 neck. Eleanor arrived at the hospital for the above procedure. She was seen in the preoperative holding area and the operative extremity was identified and signed. She was given a spinal anesthetic, a preoperative antibiotic, and TXA. She was then taken back to the operating room and laid on the table in the supine position. She was given basic sedation. The operative leg was secured to a Puristst leg positioner. The hip was then prepped and draped in sterile fashion. A timeout was done and the patient and the operative extremity was properly identified. An anterior approach was used. Dissection was taken down through the fascia and the tensor muscle belly was retracted laterally and the rectus was retracted medially. The circumflex vessels were identified and ligated. The capsule was then incised and tagged for later repair. The femoral neck was then cut and the femoral head was removed. The acetabulum was exposed. Time was spent doing a complete circumferential labral release. Sequential reaming of the acetabulum u p to a size 47 reamer was done. Final reamings were done under fluoroscopy to ensure appropriate version. A Biomet 48mm G7 cup was then impacted into place. A single 25 mm screw was placed. The E1 polyethylene liner was then snapped into place. Surrounding soft tissues were then injected with 100 cc of an orthopedic pain control cocktail. The proximal femur was then exposed. Sequential broaching up to a size 5 broach was done. Off that broach a size 32 head with a -3.5 neck was trialed. The hip was reduced and fluoroscopic images showed anatomic alignment of the implants in acceptable length. The broach was removed. The final size 5 high offset Avenir Complete stem was then impacted into place. A ceramic 32mm head with a -3.5 neck was then impacted onto the stem and the hip was reduced. Final fluoroscopic images showed anatomic alignment of the hip. The capsule was then closed with #1 Vicryl suture. A dilute betadyne lavage was then done for 3 minutes. The joint was then irrigated with normal saline solution. The fascia was closed with #1 PDS suture. Skin was closed with 2-0 Vicryl, lela, and a Silverlon dressing. She was then transferred to a hospital bed and taken to the post anesthesia care unit in stable condition. She tolerated the procedure well. Toño Euceda PA-C, was present for the entire procedure. He was critical for patient positioning, prepping, draping, retraction exposure, wound closure and application of sterile dressing. I attest to the content of the Intraoperative Record and any orders documented therein. Any exceptions are noted below.
[2021-05-07] MEDS ORDERED: MAGNESIUM HYDROXIDE SUSP 30 ML UDC PO PRN (13:22)
[2021-05-07] MEDS ORDERED: oxyCODONE HCL IR 5 MG TAB (IMMEDIATE RELEASE) PO PRN (13:22)
[2021-05-07] MEDS ORDERED: CYCLOBENZAPRINE HCL 5 MG TAB PO PRN (13:22)
[2021-05-07] MEDS ORDERED: HYDROmorphone INJ 0.5 MG/0.5 ML SYR IV PRN (13:22)
[2021-05-07] MEDS ORDERED: TRIAMCINOLONE ACET 0.5% CR 15 GM TUBE TOP PRN (13:22)
[2021-05-07] MEDS ORDERED: bisacodyL 10 MG SUPP PR PRN (13:22)
[2021-05-07] MEDS ORDERED: NALOXONE HCL 0.4 MG/1 ML VIAL/CARP IV PRN (13:22)
[2021-05-07] MEDS ORDERED: METOCLOPRAMIDE HCL INJ 5 MG/ML 2 ML VIAL IV PRN (13:22)
[2021-05-07] MEDS ORDERED: BUTALBITAL/ACETAMIN/CAFFEINE TAB PO PRN (13:26)
--- NOTE | 2021-05-07 13:46 | Fluoroscopy Report ---
FL hip RT 1V CLINICAL HISTORY: Right hip arthroplasty. COMPARISON STUDY: Pelvis and hip radiographs October 06, 2020. FLUOROSCOPY TIME: 26 seconds. FLUOROSCOPIC IMAGES: 2 FINDINGS: Fluoroscopy was provided during total right hip arthroplasty. Hardware appears intact. Ther e are no unexpected radiopaque foreign bodies. There is an acetabular screw. IMPRESSION: Fluoroscopy provided during total right hip arthroplasty. ACT 112: Negative or not required by law. Electronically signed by: Dixon Herman M.D. 05/07/2021 1:45 PM
--- NOTE | 2021-05-07 14:28 | Anesthesiology Progress Note ---
Date of Service May 07, 2021 Anesthesia Post Procedure Vital Signs Vital Signs: Temp Pulse Pulse Resp BP Pulse Ox 05/07/21 13:55 98.4 F 73 16 151/82 H 99 05/07/21 13:20 97.5 F L 64 16 128/75 99 05/07/21 13:05 97.7 F 66 19 139/71 98 05/07/21 12:55 63 14 136/70 100 05/07/21 12:45 64 15 140/73 100 05/07/21 12:35 63 14 133/68 99 05/07/21 12:28 97.5 F L 68 20 134/69 100 05/07/21 09:42 98.1 F 75 20 149/74 H 99 Pain Intensity Right Hip: Pain Intensity: 5 Transfer of Care Handoff Completed per policy Notes Mental Status: alert / awake / arousable and participated in evaluation Patient Amnestic to Procedure: Yes Nausea / Vomiting: adequately controlled Pain: adequately controlled Airway Patency, RR, SpO2: stable & adequate BP & HR: stable & adequate Hydration State: stable & adequate Neuraxial Anesthesia: was administered and sensory block is resolving Anesthetic Complications: no major complications apparent and Pt Satisfied with anesthetic care
[2021-05-07] MEDS: SODIUM CHLORIDE 0.9% 1000ML 1,000 ML IV SCH (14:47)
[2021-05-07] MEDS: ACETAMINOPHEN 500 MG TAB PO SCH ×2 (14:49→21:31)
[2021-05-07] MEDS: KETOROLAC TROMETHAMINE 15 MG/ML VIAL IV SCH ×2 (14:51→20:21)
--- NOTE | 2021-05-07 15:19 | XRay Report ---
AP PELVIS, CROSSTABLE LATERAL RIGHT HIP History: Right total hip arthroplasty. Degenerative arthritis. Postop. FINDINGS: The patient is status post a right total hip arthroplasty. The hardware is intact. No fract ure or dislocation. Skin lela are in place. IMPRESSION: Right total hip arthroplasty. No evidence for hardware complication ACT 112: Electronically signed by: Garrett Urbano M.D. 05/07/2021 3:18 PM
[2021-05-07] MEDS: ceFAZolin 2000MG 2,000 MG/15 ML SYR IV SCH (17:47)
[2021-05-07] MEDS: VENLAFAXINE HCL XR 150 MG CAPXR PO SCH (20:22)
[2021-05-07] MEDS: ASPIRIN 81 MG ECTAB PO SCH (20:22)
[2021-05-07] MEDS: DOCUSATE SODIUM 100 MG CAP PO SCH (20:22)
[2021-05-07] MEDS: PREGABALIN 100 MG CAP PO SCH (20:43)
[2021-05-07] MEDS ORDERED: rOPINIRole HCL 0.25 MG TABLET PO SCH (21:00)
[2021-05-07] MEDS ORDERED: SENNA 8.6 MG TAB PO SCH (21:00)
[2021-05-08] MEDS: SODIUM CHLORIDE 0.9% 1000ML 1,000 ML IV SCH (00:02)
[2021-05-08] MEDS: ceFAZolin 2000MG 2,000 MG/15 ML SYR IV SCH (01:37)
[2021-05-08] MEDS: KETOROLAC TROMETHAMINE 15 MG/ML VIAL IV SCH ×3 (01:37→13:39)
[2021-05-08] MEDS: ACETAMINOPHEN 500 MG TAB PO SCH ×2 (06:08→13:39)
[2021-05-08] MEDS ORDERED: LEVOTHYROXINE SODIUM 50 MCG TABLET PO SCH (06:30)
--- NOTE | 2021-05-08 06:41 | Orthopedic Progress Note ---
Date of Service May 08, 2021 Assessment & Plan (1) Status post right hip replacement: Overall she is doing fairly well. She is having too much pain in the right hip. She will be seen by physical therapy today for ambulation and range of motion exercises. She is on aspirin for DVT prophylaxis. She can be discharged home later today. She will follow-up with orthopedics in 2 weeks. Subjective Eleanor was seen and examined at bedside this morning. Overall she doing fairly well. She is having too much pain in the right hip. She has been up and ambulating to the bathroom. She has no complaints.. Review of Systems All systems reviewed & are unremarkable except as noted in HPI & below. Physical Exam On physical examination of the right hip, the dressing is clean and dry. Her leg lengths are equal. She has active dorsiflexion plantarflexion of her right ankle.. Results & Data Results & Data Laboratory Results . Diagnostic Findings Postoperative x-rays of the right hip show the prosthesis to be in anatomic alignment without any evidence of fracture, dislocation, or loosening. PG Care Time/CCT Total # of Minutes Spent Total Time Spent with Patient: Total time spent is greater than 50% in coordination of care (as documented) at patient's floor/unit and/or counseling patient: Coding Level of Care Code 42068 Post Operative Follow-Up Diagnoses Status post right hip replacement Z96.641
--- NOTE | 2021-05-08 06:42 | Discharge Summary ---
Date of Service May 08, 2021 Admission HPI (Per Admitting) Eleanor is a pleasant 70-year-old female who is been with chronic worsening right hip and groin pain. X-rays clinical examination been diagnostic for advanced osteoarthritis of the right hip. After failing conservative treatment, she has elected to proceed with a right anterior total hip arthroplasty.. Admission Exam (Per Admitting) On physical examination the right hip, her leg lengths are equal. She has pain with range of motion of her hip. All of her pains of daily in her groin. She has pain with forced internal and external rotation. Principal Diagnosis Same as "Discharge Diagnosis" noted below under Discharge Instructions. Discharge Exam On physical examination of the right hip, the dressing is clean and dry. Her leg lengths are equal. She has active dorsiflexion plantarflexion of her right ankle.. Discharge Data Procedures Performed Operation Date: 12/26/20 10:45 <No data on this case meets the specified criteria> Operation Date: 05/07/21 10:40 Actual Procedures p Right Anterior Total Hip Arthroplasty, Uncemeted(Right) - Toño Lara DO Ordered Studies 05/07/21 10:40 FL hip RT 1V Routine Hospital Course (1) Status post right hip replacement: On May 07, 2021 Eleanor arrived at [facility] and underwent a right hip replacement without complication. She had a spinal anesthetic. Postoperatively she was started on aspirin for DVT prophylaxis and transferred to the general orthopedic floors. Her hospital course was uneventful. On postop day #1 her vital signs were stable and her pain was well controlled. She was able to participate well with physical therapy doing ambulation and range of motion exercises. She was then discharged to home. She will follow-up with orthopedics in 2 weeks. PG Care Time/CCT Total # of Minutes Spent Total Time Spent with Patient: Total time spent is greater than 50% in coordination of care (as documented) at patient's floor/unit and/or counseling patient: Discharge Plan Discharge Items Patient Disposition: Home - Home Health Services Reason For Visit: Right Hip Osteoarthritis Discharge Diagnosis: Right hip replacement Activity: As commented below Non-emergency contact: Surgeon Call non-emergency contact if: your wound has increased redness and your wound has increased drainage Follow-up/Referrals: Toño Caldera DO [Primary Care Provider] - Diet: Regular Addtl Attending Provider Instructions: Activity and Therapy Recommendations: * If you are using [facility] then therapy will be provided at your home until they feel you have accomplished all of your goals. * If you are using [facility] then Physical Therapy will be provided until they feel you are ready to start Outpatient Physical Therapy. * If you are not using home therapy then Outpatient Physical Therapy should start about 3-5 days from your day of surgery. Therapy will last about 6-10 weeks * You were shown a series of exercises in the hospital. Do these exercises three times each day including the exercises you were shown in physical therapy. * Get up and walk several times each day.~ For the first four weeks, try not to stand or walk for more than one hour at a time. If you do stand or walk for more than one hour, you will not hurt anything, but your leg will likely swell.~~ * As you feel comfortable, you may change from the walker or crutches to a cane and~then to independent walking. Medications: * Narcotic You will likely be sent home from the hospital with a prescription for the narcotic pain medication that worked best throughout your stay. * Aspirin Most patients will be required to take Aspirin 81mg twice a day for 6 weeks after surgery. This is obtained [id number] and a prescription is not necessary. * Other medications may be prescribed for specific circumstances. If you have any questions, please call the office at . * Resume previous home medications unless otherwise instructed TEDs/Elastic Stockings: The white elastic stockings help limit swelling and prevent blood clots from f orming in your legs. The more you wear them, the more they work. Wear them for six weeks. Dressing Care: Leave the Silverlon dressing in place for 7 days. After 7 days you may remove the dressing. If the incision is not draining then you may leave the lela open to air. If there is a little bit of drainage or if the lela are getting stuck on your clothing then cover the incision with a dry dressing. The lela will be removed at your 2 week follow-up appointment. Showering: You may shower with the Silverlon dressing in place. Do not let the shower spray hit the dressing directly. Pat the Silverlon dressing dry. If the dressing becomes wet underneath, then simply remove the dressing. Keep the incision dry until you are 7 days out from the day of surgery. After 7 days you may remove the Silverlon dressing and shower with the lela exposed. Let soapy water run over the lela and pat them dry. Do not scrub or soak the incision. Things To Watch For: * Drainage from the incision site that occurs more than one week after your surgery. * Increased redness at the incision site. * Fever above 102 degrees Fahrenheit. * Unusual chest pain or shortness of breath. * Call [facility] at with any of the above problems Follow-Up Visit: Follow-up with Dr. Lara's PA (Toño Euceda) 2-3 weeks after your day of surgery. He will remove your lela and answer any questions. If you have any additional questions or concerns, Dr Lara is usually in the office at the same time and will be available An appointment was probably scheduled when you signed-up for surgery in the office. If you have any questions call Office Instructions: More detailed instructions as well as Frequently Asked Questions were provided in a folder by our office when you signed-up for surgery. Please review these instructions when you get home. If you have any further questions or concerns, please feel free to call the office at [phone] Pending Studies at Discharge: No Stand-Alone Forms: [facility], Smoking Cessation Medications and DC Order Prescriptions: New oxycodone-acetaminophen 5-325 mg tablet 1 tab PO Q6H PRN (Reason: pain) Qty: 30 RF: 0 aspirin 81 mg Tablet,Delayed Release (Dr/Ec) 81 mg PO BID 42 Days Qty: 0 RF: 0 Continued levothyroxine 50 mcg tablet 50 mcg PO QAM Qty: 90 RF: 3 venlafaxine 150 mg capsule,extended release 24hr 150 mg PO BID Qty: 180 RF: 2 pregabalin 100 mg capsule 100 mg PO BID 30 Days Qty: 60 RF: 2 hydrocodone-acetaminophen 5-325 mg tablet 1 tab PO Q6H PRN (Reason: pain) Qty: 30 RF: 0 cyclobenzaprine 5 mg tablet 5 mg PO TID PRN (Reason: muscle spasm) Qty: 90 RF: 1 halobetasol propionate 0.05 % cream 1 applic topical BID PRN (Reason: ud) RF: 0 triamcinolone acetonide 0.5 % cream 1 applic topical BID PRN (Reason: ud) RF: 0 ropinirole 0.25 mg tablet 0.75 mg PO QPM Qty: 90 RF: 5 lisinopril 20 mg tablet 20 mg PO QAM Qty: 90 RF: 1 multivitamin Tablet 1 tab PO QAM RF: 0 cholecalciferol (vitamin D3) [Vitamin D3] 1,000 unit Capsule 1,000 unit PO QAM RF: 0 magnesium oxide 400 mg magnesium Capsule 800 mg PO QAM RF: 0 thiamine HCl (vitamin B1) 100 mg tablet 100 mg PO QAM RF: 0 cyanocobalamin (vitamin B-12) 1,000 mcg Capsule 1,000 mcg PO QAM RF: 0 [id number] [Fioricet] 50-300-40 mg Capsule 1 cap PO Q8H PRN (Reason: Migraine Headache) RF: 0 calcium carbonate [Calcium 500] 500 mg calcium (1,250 mg) Tablet 500 mg PO QAM RF: 0 Biofreeze 0.2-3.5 % Gel 1 applic TOPICAL BID PRN (Reason: Pain) RF: 0 Discharge Orders: Discharge Order (Routine); Ordered 05/08/21 Ordered By: Toño Lara Admission Data Admit Date/Time: 05/07/21 12:31 Attending Provider: Toño Lara Admit Provider: Toño Lara Primary Care Provider: Toño Caldera
[2021-05-08] MEDS ORDERED: dexAMETHasone 4 MG TAB PO SCH (08:00)
[2021-05-08] MEDS: PREGABALIN 100 MG CAP PO SCH (08:10)
[2021-05-08] MEDS: DOCUSATE SODIUM 100 MG CAP PO SCH (08:11)
[2021-05-08] MEDS: ASPIRIN 81 MG ECTAB PO SCH (08:11)
[2021-05-08] MEDS: VENLAFAXINE HCL XR 150 MG CAPXR PO SCH (08:11)
[2021-05-08] MEDS ORDERED: MULTIVITAMIN TAB PO SCH (09:00)
[2021-05-08] MEDS ORDERED: MAGNESIUM OXIDE 400 MG TAB PO SCH (09:00)
[2021-05-08] MEDS ORDERED: NON-FORMULARY MEDICATION (Multivitamin Tablet) PO SCH (09:00)
[2021-05-08] MEDS ORDERED: THIAMINE HCL 100 MG TAB PO SCH (09:00)
[2021-05-08] MEDS ORDERED: lisinopril 20 MG TAB PO SCH (09:00)
== END 2021-05-08 14:37 | disposition home health service (06) ==
LOC: ASU 09:21 → 3N 09:21

== ENCOUNTER 2024-11-08 05:27 | Observation (INO) ==
--- NOTE | 2024-10-04 11:34 | PAT Medication Instructions ---
Medication Instructions Date of Service October 04, 2024 Home Medications Medication Instructions Recorded cyclobenzaprine 5 mg tablet 5 mg PO TID PRN muscle spasm #90 12/31/22 tabs ropinirole 0.25 mg tablet 0.75 mg (3 x 0.25 mg) PO QPM #90 08/11/24 tabs buspirone 10 mg tablet 10 mg PO BID anxiety #60 tabs 09/29/24 levothyroxine 50 mcg tablet 50 mcg PO QAM #90 tabs 09/29/24 multivitamin 1 tab PO QAM magnesium oxide 400 mg PO QAM cyclobenzaprine 5 mg tablet 5 mg PO TID PRN mecobalamin (vitamin B12) 1,000 mcg chewable tablet 1,000 mcg PO QAM ropinirole 0.25 mg tablet 0.75 mg (3 x 0.25 mg) PO QPM amlodipine 5 mg tablet 5 mg PO QAM buspirone 10 mg tablet 10 mg PO BID levothyroxine 50 mcg tablet 50 mcg PO QAM lisinopril 40 mg tablet 40 mg PO QAM thiamine HCl (vitamin B1) 500 mg tablet 500 mg PO QAM venlafaxine 150 mg capsule,extended release 24 hr (Effexor XR) 150 mg PO QAM DO NOT take the morning of surgery multivitamin 1 tab PO QAM magnesium oxide 400 mg PO QAM mecobalamin (vitamin B12) 1,000 mcg chewable tablet 1,000 mcg PO QAM lisinopril 40 mg tablet 40 mg PO QAM thiamine HCl (vitamin B1) 500 mg tablet 500 mg PO QAM Take morning of surgery With a small sip of water, OTHERWISE NOTHING TO EAT OR DRINK AFTER MIDNIGHT: cyclobenzaprine 5 mg tablet 5 mg PO TID PRN(if needed) amlodipine 5 mg tablet 5 mg PO QAM buspirone 10 mg tablet 10 mg PO BID levothyroxine 50 mcg tablet 50 mcg PO QAM venlafaxine 150 mg capsule,extended release 24 hr (Effexor XR) 150 mg PO QAM Take evening before surgery cyclobenzaprine 5 mg tablet 5 mg PO TID PRN(if needed) ropinirole 0.25 mg tablet 0.75 mg (3 x 0.25 mg) PO QPM buspirone 10 mg tablet 10 mg PO BID Other Notes If you have any questions please call us at [phone] or [phone] or [phone] or [phone]
--- NOTE | 2024-10-11 08:46 | Anesthesiology Consultation ---
Date of Service October 11, 2024 Assessment & Plan (1) Encounter for pre-operative examination: - right arm restriction. - Outpatient joint assessment: Patient is currently scheduled for inpatient pathway. If re-evaluated and patient/surgeon requests outpatient pathway, patient is not advised candidate for outpatient joint program. Chart Review Chart Review: Acceptable Risk for Surgery and Patient seen in Pre Admission T esting Teaching & Discussion Pre-Anesthesia Teaching/Discussion Notes: Instructed NPO after midnight before surgery, except medications with 15 cc of water. Medication instructions provided according to the PAT guidelines. History Surgery Operation Date: 11/08/24 11:00 Proposed Procedures p Left Anterior Total Hip Arthroplasty - Toño Lara, DO Height/Weight Height: 5 ft 4.75 in Weight: 57.3 kg Allergies Allergy/AdvReac Type Severity Reaction Status Date / Time propranolol Allergy Mild fatigue, Verified 09/29/24 13:46 weakness gabapentin AdvReac Intermediate diarrhea Verified 09/29/24 13:46 Medications Home Medications Medication Instructions Recorded Confirmed Last Taken multivitamin 1 tab PO QAM 04/27/18 09/29/24 03/06/22 08:00 magnesium oxide 400 mg PO QAM 10/07/18 09/29/24 03/06/22 08:00 cyclobenzaprine 5 mg tablet 5 mg PO TID PRN muscle spasm #90 12/31/22 09/29/24 Unknown tabs mecobalamin (vitamin B12) 1,000 1,000 mcg PO QAM 12/31/22 09/29/24 Unknown mcg chewable tablet ropinirole 0.25 mg tablet 0.75 mg (3 x 0.25 mg) PO QPM #90 08/11/24 09/29/24 Unknown tabs amlodipine 5 mg tablet 5 mg PO QAM 09/29/24 09/29/24 Unknown buspirone 10 mg tablet 10 mg PO BID anxiety #60 tabs 09/29/24 09/29/24 Unknown levothyroxine 50 mcg tablet 50 mcg PO QAM #90 tabs 09/29/24 09/29/24 Unknown lisinopril 40 mg tablet 40 mg PO QAM 09/29/24 09/29/24 Unknown thiamine HCl (vitamin B1) 500 mg 500 mg PO QAM 09/29/24 09/29/24 Unknown tablet venlafaxine 150 mg 150 mg PO QAM 09/29/24 09/29/24 Unknown capsule,extended release 24 hr (Effexor XR) Past Medical History Medical History (Updated 10/11/24 @ 09:50 by Nette Lion PA-C) Acid reflux controlled, stable per pt Anxiety and depression Asymmetrical left sensorineural hearing loss No hearing aid needed Ataxia hx, no recent issues B12 deficiency hx Chronic constipation hx, "not as bad anymore" Degenerative disc disease 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 (09/25/24) History of anemia in her early 20's, no recent issues History of hypertension controlled, stable per pt History of hypothyroidism History of right breast cancer (~1997) 1997 s/p radiation/ right breast lumpectomy with LND Right UE restriction Hx of migraines "not as bad as they used to be" Hx of osteoporosis Hx of spinal stenosis Limb alert care status right arm Osteoarthritis of left hip Peripheral neuropathy feet PLMD (periodic limb movement disorder) Primary malignant neoplasm of right lower lobe of lung (~07/2015) 2015 -- sx No chemo or XRT Transient ischemic attack (TIA) (~2014) 2014--follows with Dr. Najera, no deficits Patient denies h/o seizures, heart attack, heart failure, DM, blood clots/DVTs or blood transfusions. Exercise / Class Metabolic Activity II 4-5 Yardwork/Stairs/Walk up hill (denies chest discomfort or shortness of breath with one flight of stairs) Past Family History Family History Mother Cancer tumors on her hips Brother Suicide Father Heart disease Other No family history of adverse response to anesthesia Denies family history of Ovarian cancer Prostate cancer Myocardial infarction Lung cancer Colorectal cancer Past Surgical History Surgical History H/O right hemicolectomy (11/04/18) Right Laparoscopic extended right hemicolectomy Dr. Lancaster 11-04-18 Secondary to volvulus History of colonoscopy 10/2019 Repeat 5 yrs History of colposcopy with cervical biopsy History of dilatation and curettage History of left breast biopsy History of lobectomy of lung (~07/2015) right lower lobe d/t cancer History of lumpectomy of right breast + LND History of right breast biopsy "malignant" > radiation History of tonsillectomy and adenoidectomy History of total abdominal hysterectomy and bilateral salpingo-oophorectomy History of wisdom tooth extraction Hx of ventral hernia repair Robotic ventral hernia repair 20 March 2022, Dr. Lancaster S/P cataract extraction bilat S/P hip replacement right Past Anesthesia History No Hx of Anesthesia Complications and No Family Hx of Anesthesia Complications History of PONV No Hx of PONV and No Hx of Motion Sickness Social History Smoking Status: Former smoker tobacco type: cigarettes Smoking cigarettes per day: 1/2 pk/day Do You Dip or Chew Tobacco: No Smoking End Date: 1997 Hx Alcohol Use: Yes Alcohol type: beer, wine and hard liquor alcohol intake frequency: 0-2 drinks per day Alcohol Intake Frequency Comment: none for last 4 weeks Hx Substance Use: Yes substance use type: former substance user and marijuana Substance Use Type Other:: advised 3 day or longer hold by nursing Last Used Substance Other:: years ago Review of Systems Snoring, denies witnessed apneas. Patient denies chest pain, shortness of breath, dyspnea on exertion, fever, c hills, cough, wheezing, or palpitations. Physical Exam Vital Signs Vitals BP 127/74 P 71 TEMP 98.2 SP02 98% on RA RESP 18 Physical Patient resting comfortably in chair in no acute distress, alert and oriented, responding appropriately throughout visit Full cervical extension range of motion without pain TMD 3.5 finger breadths Mallampati Score 2 Dentition: intact, denies chipped or loose teeth, caps/crowns, implants or bridges Lungs: normal respiratory effort. Good air movement, clear throughout to auscultation, no adventitious breath sounds Cardiac: regular rate and rhythm, no murmurs noted Carotid arteries: negative bruit bilat Lab Results Anesthesia Preop Results Results Anesthesia Widget: WBC 5.37 K/ul (4.8-10.8) 10/11/24 Hgb 13.7 g/dl (12.0-16.0) 10/11/24 Hct 40.2 % (37.0-47.0) 10/11/24 Plt 386 K/uL (130-400) 10/11/24 Na 138 mmol/L (136-145) 10/11/24 K 4.5 mmol/L (3.5-5.1) 10/11/24 Cl 104 mmol/L (98-107) 10/11/24 CO2 27 mmol/L (21-32) 10/11/24 BUN 14 mg/dl (6-23) 10/11/24 Creat 0.77 mg/dl (0.6-1.2) 10/11/24 Glucose Level 96 mg/dl (70-99(Fasting)) 10/11/24 PT 10.7 Seconds (9.0-12.0) 10/11/24 PTT 28 Seconds (21-31) 10/11/24 INR 1.0 (0.9-1.1) 10/11/24 TSH 1.706 uIu/ml (0.300-4.500) 08/18/24 Blood Type O Positive 10/11/24 Antibody Screen NEGATIVE 10/11/24 Testing Electrocardiogram Date: 10/11/24 NSR, rate 63 bpm Low voltage QRS Chest X-Ray Date: 10/11/24 Heart size and pulmonary vasculature are normal. Stable mild elevation of the right hemidiaphragm. No consolidation or pleural effusion. No pneumothorax. IMPRESSION: No acute findings. Other Testing Liver US 09/17/24 1. No gallstones or evidence of acute cholecystitis. 2. Fatty liver.
--- NOTE | 2024-11-03 12:52 | History & Physical Report ---
Date of Service November 03, 2024 Assessment & Plan (1) Osteoarthritis of left hip: We will proceed with a left anterior total of arthroplasty. Postoperatively, she will be started on aspirin for DVT prophylaxis and kept overnight in the hospital for postop medical management. She plans to use energy physical t herapy upon discharge. History of Present Illness Chief Complaint: Osteoarthritis left hip. Primary Care Provider: Toño Caldera DO Webster is a pleasant 74-year-old female who I did a right hip replacement on in the past. She did very well with that. Unfortunately, she is dealing with left hip pain. She states it feels similar. All of her pain is located in the groin. She had an intraarticular hip injection by Dr. Vaughn over six months ago and that helped a lot. That alleviated almost all of her pain but unfortunately, her pain returned. After failed conservative treatment, she has elected proceed with a left total hip arthroplasty. Allergies Allergy/AdvReac Type Severity Reaction Status Date / Time propranolol Allergy Mild fatigue, Verified 11/02/24 12:06 weakness gabapentin AdvReac Intermediate diarrhea Verified 11/02/24 12:06 Home Medications Medication Instructions Recorded Confirmed Type multivitamin 1 tab PO QAM 04/27/18 10/26/24 History magnesium oxide 400 mg PO QAM 10/07/18 10/26/24 History cyclobenzaprine 5 mg tablet 5 mg PO TID PRN muscle spasm #90 12/31/22 10/26/24 Rx tabs mecobalamin (vitamin B12) 1,000 1,000 mcg PO QAM 12/31/22 10/26/24 History mcg chewable tablet ropinirole 0.25 mg tablet 0.75 mg (3 x 0.25 mg) PO QPM #90 08/11/24 10/26/24 Rx tabs amlodipine 5 mg tablet 5 mg PO QAM 09/29/24 10/26/24 History buspirone 10 mg tablet 10 mg PO BID anxiety #60 tabs 09/29/24 10/26/24 Rx levothyroxine 50 mcg tablet 50 mcg PO QAM #90 tabs 09/29/24 10/26/24 Rx thiamine HCl (vitamin B1) 500 mg 500 mg PO QAM 09/29/24 10/26/24 History tablet venlafaxine 150 mg 150 mg PO QAM 09/29/24 10/26/24 History capsule,extended release 24 hr (Effexor XR) lisinopril 40 mg tablet 40 mg PO QAM #90 tabs 10/28/24 Rx Past Med/Surg History Problem List 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 Restless leg syndrome Anxiety Alcohol dependence Lumbar radiculopathy Osteoporosis (Acute) Chronic osteoarthritis (Chronic) Spinal stenosis Depression Migraine HTN (hypertension) (Chronic) Hypothyroidism (Chronic) Medical History Limb alert care status right arm History of anemia in her early 20's, no recent issues 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 (09/25/24) Hx of spinal stenosis Hx of osteoporosis Hx of migraines "not as bad as they used to be" History of hypothyroidism History of hypertension controlled, stable per pt Anxiety and depression B12 deficiency hx Peripheral neuropathy feet Osteoarthritis of left hip Ataxia hx, no recent issues Chronic constipation hx, "not as bad anymore" Acid reflux controlled, stable per pt History of right breast cancer (~1997) 1997 s/p radiation/ right breast lumpectomy with LND Right UE restriction Primary malignant neoplasm of right lower lobe of lung (~07/2015) 2015 -- sx No chemo or XRT PLMD (periodic limb movement disorder) Asymmetrical left sensorineural hearing loss No hearing aid needed Degenerative disc disease Transient ischemic attack (TIA) (~2014) 2014--follows with Dr. Najera, no deficits Surgical History Hx of ventral hernia repair Robotic ventral hernia repair 20 March 2022, Dr. Lancaster S/P cataract extraction bilat S/P hip replacement right H/O right hemicolectomy (11/04/18) Right Laparoscopic extended right hemicolectomy Dr. Lancaster 11-04-18 Secondary to volvulus History of lumpectomy of right breast + LND History of left breast biopsy History of right breast biopsy "malignant" > radiation History of dilatation and curettage History of colonoscopy 10/2019 Repeat 5 yrs History of total abdominal hysterectomy and bilateral salpingo-oophorectomy History of colposcopy with cervical biopsy History of wisdom tooth extraction History of tonsillectomy and adenoidectomy History of lobectomy of lung (~07/2015) right lower lobe d/t cancer Family History Mother Cancer tumors on her hips Brother Suicide Father Heart disease Other No family history of adverse response to anesthesia Denies family history of Ovarian cancer Prostate cancer Myocardial infarction Lung cancer Colorectal cancer Social History Smoking Status: Former smoker Tobacco Type: Cigarettes Age Started Using Tobacco: 20; Age Quit Using Tobacco: 53; packs per day: 0.50; Cigarettes Per Day: 1/2 pk/day; Second Hand Exposure: Yes (hx); Do You Dip or Chew Tobacco: No; Hx Alcohol Use: Yes (none in 4 weeks) Alcohol type: beer, wine and hard liquor Alcohol Intake Frequency: 4 or More x per/Week Alcohol Intake Frequency Comment: daily Hx Substance Use: Yes Last Used Substance Other:: years ago Substance Use Type Other:: advised 3 day or longer hold by nursing Preferred Language: Russian Communication Ability: Effective Visual Impairment: Diminished Hearing Ability: Normal Practical Nurse Required: No Beliefs That Will Affect Care: None marital status: / Current Living Situation: Alone current occupational status: retired How many Children do You have: 0 Feels Safe at Home: Yes Childhood Exposure to Second-Hand Smoke: Yes Diet: low salt Diet Comment: watching diet for fats and spice caffeine: Yes Dental Care, Regularly: Yes Physical Activity Frequency: Does not Exercise Seatbelt Use: always Sunscreen Use: Yes Assistive Devices: Glasses Review of Systems All systems reviewed & are unremarkable except as noted in HPI & below. Physical Exam On physical exam of the left hip, she has decreased range of motion. She has pain with internal/external rotation. All of her pain is located in the groin.. Constitutional WD/WN, vitals as above Eyes PERRL, conjunctivae normal, anicteric sclerae ENMT external ear and nose normal, oropharynx normal Neck trachea midline, no thyromegaly Respiratory normal respiratory effort Cardiovascular RRR, no murmur, no edema Gastrointestinal (Abdomen) normal bowel sounds, soft, nontender, no hepatosplenomegaly Psychiatric A+Ox3, euthymic affect Results & Data Results & Data Laboratory Results . Diagnostic Findings X-rays of the left hip show advanced osteoarthritis with joint space narrowing, osteophyte formation, and [id number] articulation. PG Care Time/CCT Total # of Minutes Spent Total Time Spent with Patient: Total time spent is greater than 50% in coordination of care (as documented) at patient's floor/unit and/or counseling patient: Coding Level of Care Code None Diagnoses Osteoarthritis of left hip M16.12
[2024-11-08] MEDS: GABAPENTIN 300 MG CAP PO SCH (05:38)
[2024-11-08] MEDS: ACETAMINOPHEN 500 MG TAB PO SCH ×2 (06:00→14:27)
[2024-11-08] MEDS: LR 500ML BOLUS, THEN 15ML/HR IV SCH (06:00)
[2024-11-08] MEDS: LR 60ML/HR IV SCH (06:00)
[2024-11-08] MEDS: dexAMETHasone**PF** 10 MG/ML VIAL IV SCH (06:01)
[2024-11-08] MEDS: FAMOTIDINE 20 MG TAB PO SCH (06:01)
[2024-11-08] MEDS ORDERED: MIDAZOLAM HCL 1 MG/ML 2ML VIAL ONE (06:06)
[2024-11-08] MEDS ORDERED: BUPIVACAINE 0.5 % 5 MG/1 ML PF 10ML VIAL ONE (06:08)
[2024-11-08] MEDS ORDERED: PROPOFOL IV EMULSION 10 MG/ML 20 ML VIAL IV ONE (06:21)
[2024-11-08] MEDS ORDERED: GLYCOPYRROLATE 0.2 MG/ML VIAL ONE (06:21)
[2024-11-08] MEDS ORDERED: ONDANSETRON INJ 2 MG/ML 2 ML VIAL ONE (06:21)
[2024-11-08] MEDS ORDERED: LIDOCAINE 2% 2 ML VIAL/AMP(20MG/ML) INFIL ONE (06:21)
[2024-11-08] MEDS ORDERED: PHENYLEPHRINE 100MCG/ML 5ML SYR ONE (06:24)
[2024-11-08] MEDS ORDERED: ePHEDrine sulfate 50 MG/5 ML SYR ONE (06:24)
[2024-11-08] MEDS ORDERED: ATROPINE SULFATE 0.1 MG/ML 10ML SYR IV PRN (06:25)
[2024-11-08] MEDS ORDERED: ONDANSETRON INJ 2 MG/ML 2 ML VIAL IV PRN ×2 (06:25→09:36)
--- NOTE | 2024-11-08 06:42 | History & Physical Bridge Note ---
Date of Service November 08, 2024 History & Physical Bridge Note I have examined the patient, reviewed the History & Physical and in the interval since the performance of the History & Physical I have noted the following changes of clinical significance: no changes noted
[2024-11-08] MEDS: TRANEXAMIC ACID 1,000 MG **IV Pre-op IV SCH (06:46)
[2024-11-08] MEDS: ROPIV 0.5% 246mg, Ketorolac 30mg, EPINEPHrine 0.5mg in NSS INFIL SCH (07:30)
[2024-11-08] MEDS: ORTHO JOINT ANESTHETIC ONE (07:31)
--- NOTE | 2024-11-08 07:52 | Operative Report ---
PG Post Operative Report Pre & Post Diagnosis Operation Date: 11/08/24 07:00 Pre-Op Diagnosis: Left Hip Arthritis Post-Op Diagnosis: Left Hip Arthritis I identified the patient and participated in the time-out.: Yes Procedure Operation Date: 11/08/24 07:00 Actual Procedures p Left Anterior Total Hip Arthroplasty(Left) - Toño Lara DO Surgeon Toño Lara DO Agency Appointments Supervisor Travon Welch PA-C Estimated Blood Loss 150 Findings Consistent with Post-Op Diagnosis Specimens Left femoral head Description of Procedure Implants used I used a [employer] total hip arthroplasty system with a size 4 high offset Z1 stem, a 48 mm G7 cup , an E1 polyethylene liner, a 32 mm ceramic head with a - 3.5 neck. Eleanor arrived at the hospital for the above procedure. She was seen in the preoperative holding area and the operative extremity was identified and signed. She was given a spinal anesthetic, a preoperative antibiotic, and TXA. She was then taken back to the operating room and laid on the table in the supine position. She was given basic sedation. The operative leg was secured to a Puristst leg positioner. The hip was then prepped and draped in sterile fashion. A timeout was done and the patient and the operative extremity was properly identified. An anterior approach was used. Dissection was taken down through the fascia and the tensor muscle belly was retracted laterally and the rectus was retracted medially. The circumflex vessels were identified and ligated. The capsule was then incised and tagged for later repair. The femoral neck was then cut and the femoral head was removed. The acetabulum was exposed. Time was spent doing a complete circumferential labral release. Sequential reaming of the acetabulum up to a size 47 reamer was done. Final reamings were done under fluoroscopy to ensure appropriate version. A Biomet 48 mm G7 cup was then impacted into place. The E1 polyethylene liner was then snapped into place. Surrounding soft tissues were then injected with 100 cc of an orthopedic pain control cocktail. The proximal femur was then exposed. Sequential broaching up to a size 4 broach was done. Off that broach a size 32 head with a -3.5 neck was trialed. The hip was reduced and fluoroscopic images showed anatomic alignment of the implants in acceptable length. The broach was removed. The final size 4 high offset Z1 stem was then impacted into place. A ceramic 32 mm head with a -3.5 neck was then impacted onto the stem and the hip was reduced. Final fluoroscopic images showed anatomic alignment of the hip. The capsule was then closed with #1 Vicryl suture. A dilute betadyne lavage was then done for 3 minutes. The joint was then irrigated with normal saline solution. The fascia was closed with #1 PDS suture. Skin was closed with 2-0 Vicryl, Hiland zip line, and a Silverlon dressing. She was then transferred to a hospital bed and taken to the post anesthesia care unit in stable condition. She tolerated the procedure well. Travon Welch PA-C, was present for the entire procedure. He was critical for patient positioning, prepping, draping, retraction exposure, wound closure and application of sterile dressing. I attest to the content of the Intraoperative Record and any orders documented therein. Any exceptions are noted below.
--- NOTE | 2024-11-08 08:06 | Fluoroscopy Report ---
FL hip LT 1V CLINICAL HISTORY: LEFT ANTERIOR HIP COMPARISON STUDY: None FLUOROSCOPY TIME: 12 seconds FLUOROSCOPY IMAGES: 1 EXPOSURE DOSE: 1.1 mGy FINDINGS: Fluoroscopy was provided for left hip prosthesis. IMPRESSION: Intraoperative fluoroscopy. ACT 112: Negative or not required by law. Electronically signed by: Dillan Hollins M.D. 11/08/2024 8:04 AM
--- NOTE | 2024-11-08 08:43 | XRay Report ---
XR hip 1V LT w pelvis CLINICAL HISTORY: IN PACU - Post Surgical COMPARISON: 05/07/2021 FINDINGS: Bilateral hip prostheses show no hardware complication. There is expected soft tissue gas on the left. IMPRESSION: Unremarkable postoperative exam. ACT 112: Negative or not required by law. Electronically signed by: Dillan Hollins M.D. 11/08/2024 8:42 AM
[2024-11-08] MEDS ORDERED: METOCLOPRAMIDE HCL INJ 5 MG/ML 2 ML VIAL IV PRN (09:36)
[2024-11-08] MEDS ORDERED: NALOXONE HCL 0.4 MG/1 ML VIAL/CARP IV PRN (09:36)
[2024-11-08] MEDS ORDERED: MAGNESIUM HYDROXIDE SUSP 30 ML UDC PO PRN (09:36)
[2024-11-08] MEDS ORDERED: HYDROmorphone INJ 0.5 MG/0.5 ML SYR IV PRN (09:36)
[2024-11-08] MEDS: SODIUM CHLORIDE 0.9% 1,000 ML IV SCH (10:17)
[2024-11-08] MEDS: busPIRone 5 MG TAB PO SCH (10:35)
[2024-11-08] MEDS: VENLAFAXINE HCL XR 150 MG CAPXR PO SCH (10:36)
[2024-11-08] MEDS: LEVOTHYROXINE SODIUM 50 MCG TABLET PO SCH (10:36)
[2024-11-08] MEDS: DOCUSATE SODIUM 100 MG CAP PO SCH (10:36)
[2024-11-08] MEDS: KETOROLAC TROMETHAMINE 15 MG/ML VIAL IV SCH (10:37)
[2024-11-08] MEDS: MULTIVITAMIN TAB PO SCH (10:38)
[2024-11-08] MEDS: ASPIRIN 81 MG ECTAB PO SCH (10:38)
--- NOTE | 2024-11-08 13:21 | Anesthesiology Progress Note ---
Date of Service November 08, 2024 Anesthesia Post Procedure Vital Signs Vital Signs: Temp Pulse Pulse Resp BP Pulse Ox O2 Del Method 11/08/24 12:34 98.1 F 89 20 142/83 H 98 Room Air 11/08/24 11:43 97.7 F 73 16 113/60 98 Room Air 11/08/24 10:43 97.3 F L 72 18 127/69 100 Room Air 11/08/24 10:16 98.1 F 72 18 113/65 100 Room Air 11/08/24 09:43 97.5 F L 69 18 125/70 98 Room Air 11/08/24 09:30 70 14 126/61 96 Room Air 11/08/24 09:15 97.0 F L 71 18 124/64 95 Room Air 11/08/24 09:05 75 16 141/67 H 96 Room Air 11/08/24 08:55 77 14 138/67 97 Room Air 11/08/24 08:45 78 16 137/66 98 Room Air 11/08/24 08:35 80 14 123/62 98 Room Air 11/08/24 08:25 80 18 121/57 L 100 Room Air 11/08/24 08:14 97.5 F L 87 14 106/54 L 100 Oxymask 11/08/24 05:49 97.7 F 69 20 146/77 H 100 Room Air O2 Flow Rate 11/08/24 12:34 11/08/24 11:43 11/08/24 10:43 11/08/24 10:16 11/08/24 09:43 11/08/24 09:30 11/08/24 09:15 11/08/24 09:05 11/08/24 08:55 11/08/24 08:45 11/08/24 08:35 11/08/24 08:25 11/08/24 08:14 6 11/08/24 05:49 Transfer of Care Handoff Completed per policy Notes Mental Status: alert / awake / arousable and participated in evaluation Patient Amnestic to Procedure: Yes Nausea / Vomiting: adequately controlled Pain: adequately controlled Airway Patency, RR, SpO2: stable & adequate BP & HR: stable & adequate Hydration State: stable & adequate Neuraxial Anesthesia: was administered and sensory block is resolving Anesthetic Complications: no major complications apparent and Pt Satisfied with anesthetic care
[2024-11-08] MEDS: SENNA 8.6 MG TAB PO SCH (20:38)
[2024-11-09 07:13] VITALS: BP 129/65; PULSE 75; RESP 18; TEMP 98.1; O2SAT 96
--- NOTE | 2024-11-09 08:16 | Orthopedic Progress Note ---
Date of Service November 09, 2024 Assessment & Plan (1) S/P total left hip arthroplasty: * Continue Current Treatment * Disposition: home * Daily treatment: Physical Therapy/ Occupational Therapy per protocol * Weight bearing status: WBAT, no precautions * Continue to monitor for ABLA * Pain control * DVT prophylaxis, ASA * Office/hospital f/u 2 weeks for progress check and staple/suture removal * Plan for discharge today pending PT/OT clearance Subjective . Active Problems: S/p left JERI POD 1 74 y/o female s/p left JERI. Doing well overall, pain managed and improved function. Denies fever/chills, chest pain/SOB, nausea/vomiting. Otherwise no complaints. Review of Systems All systems reviewed & are unremarkable except as noted in HPI & below. Physical Exam . * General: Alert and oriented, no acute distress * Constitutional: well-developed, well-nourished. * Respiratory: Normal respiratory effort, no distress * Gastrointestinal: No tenderness to palpation, no rigidity or guarding. * Skin: No rash or lesion. * Neurologic: Grossly normal * Musculoskeletal: Left hip surgical dressing CDI, not removed for exam. Otherwise no obvious deformity or overlying skin changes. Diffuse TTP proximal thigh and hip region. Otherwise no specific tenderness of distal thigh, lower leg, foot/ankle. AROM hip flexion intact. AROM foot/ankle intact. Sensation intact plantar/dorsal foot. Brisk capillary refill. Results & Data Results & Data Laboratory Results . Diagnostic Findings . PG Care Time/CCT Total # of Minutes Spent Total Time Spent with Patient: Total time spent is greater than 50% in coordination of care (as documented) at patient's floor/unit and/or counseling patient: Coding Level of Care Code 40685 Post Operative Follow-Up Diagnoses S/P total left hip arthroplasty Z96.642
== END 2024-11-09 10:56 | disposition home or self-care (01) ==
LOC: ASU 05:27 → 3E 05:27